=== PATIENT | female | born 1935 | race Caucasian/White ===

== ENCOUNTER 2016-09-06 07:55 | Inpatient (IN) | payer OTHER ==
[~2016-09-06] VITALS: Ht 162.6 cm; Wt 45.4 kg
--- NOTE | ~2016-09-06 | HC ---
[facility] [place] [address] CONSULTATION Name: FLETCHER PATRICIO Room #: 464-P [facility] Christine Hawkins#: [id number] Admission: 09/06/16 Attend Phys: Ani Gonsales MD Discharge: Date of : 34 Report #: [id number] THIS REPORT FOR: //name// CC: Ani PeñaKatie DATE OF SERVICE: 09/09/2016 We were asked by Dr. Mills and Dr. Sandhu to see the patient. HISTORY OF PRESENT ILLNESS: The patient is an 81-year-old with lower extremity arterial occlusive disease. The patient presented with cellulitis of the left lower extremity. Arteriography was done yesterday that showed occlusion of the left superficial femoral artery and a stent was placed. Unfortunately, during the night, the patient developed some pain. It was perceived that there was decreased circulation in the right lower extremity (____catheterized). We note today, the patient went for an MRI of the left lower extremity, there is an ulcerated and cellulitic area on the dorsum of the left foot and according to Radiology, there is no underlying osteomyelitis shown on the MRI. PAST MEDICAL HISTORY: Significant for chronic obstructive pulmonary disease related to a long smoking history, diabetes mellitus, coronary artery disease, chronic pancreatitis. HOME MEDICATIONS: Includes albuterol, Xarelto, pentoxifylline, Colestid, Zocor, aspirin, [place], potassium, Lasix, Xalatan, Creon, omeprazole, glimepiride, multivitamins and vitamin C, Plavix was started yesterday. SOCIAL HISTORY: Smoking history, 1 pack a day. FAMILY HISTORY: No other family history of vascular disease. ALLERGIES: PENICILLIN and MEPERIDINE. REVIEW OF SYSTEMS: CONSTITUTIONAL: No fever, chills, malaise, weight change. EYES: No eye pain, no visual change. No new hearing problems. The patient wears glasses. HEENT: As mentioned, no hearing changes, no ear discharge, neck pain, sore throat. RESPIRATORY: No cough. No new shortness of breath, no hemoptysis. CARDIAC: No chest pain, no palpitations. GASTROINTESTINAL: No nausea, vomiting or diarrhea. Does have chronic abdominal pain. GENITOURINARY: No burning, frequency, urgency. [facility] [address] [place] [address] CONSULTATION Name: FLETCHER PATRICIO Room #: 464-[facility] Christine Hawkins#: [id number] Admission: 09/06/16 Attend Phys: Ani Gonsales MD Discharge: Date of : 34 Report #: [id number] MUSCULOSKELETAL: Sore present on the left leg resulting in shooting, sharp pain to the foot, cannot bear weight on left foot, which led to fall, which led to this admission, chronic back pain. SKIN: No previous rash or infection. We note the bruising and cellulitis on the left lower extremity upon admission. NEUROLOGIC: Has had generalized weakness leading to falling, but patient hit her head when she fell, no amnesia, confusion, loss of consciousness. PHYSICAL EXAMINATION: GENERAL: The patient is a thin, frail woman. VITAL SIGNS: Blood pressure 95/56, heart rate 113, respiratory rate 20, temperature 36.6, O2 sat 98 on 8 liters. HEENT: No scleral icterus, no arcus. NECK: No lymphadenopathy, no bruit. CHEST: Decreased breath sounds. HEART: Rhythm regular. ABDOMEN: Mild generalized discomfort to palpation, nondistended, bowel sounds present. EXTREMITIES: Left foot edematous and cellulitic with a particular area of erythema on the dorsum of the foot that is a bit swollen and more ____ and more cellulitic appearing. Right lower extremity warm and pink. Pulses, I do not feel dorsalis pedis or posterior tibial pulses, I do not feel popliteal pulses. Right groin has been catheterized. NEUROLOGIC: Seems to have full motion and sensation, moves toes and has full distal sensation. MUSCULOSKELETAL: No other bony dyssymmetry or deformity. PSYCHIATRIC: Seems a bit unhappy, but seem oriented and overall appropriate. ASSESSMENT: The patient has lower extremity arterial occlusive disease related to long smoking history, possible that the patient may have embolized somewhat from the right groin catheterization. We note the plans are established to perform arteriogram tomorrow to see if there is some intervention that can be done. The right leg has not currently threatened, however, and I spoke with Dr. Sandhu and we both agree that an overly aggressive approach would not be warranted in any event. Thank you for the consult. <ELECTRONICALLY SIGNED> By: Otto Frey MD 09/12/16 1128 1515 [id number] Otto Frey MD /nt
--- NOTE | ~2016-09-06 | 2DMMODE ---
[facility] [place] [address] 2 D/M-MODE ECHOCARDIOGRAM Name: FLETCHER PATRICIO Room #: 464-P ADM IN M.R.#: [id number] Admission: 09/06/16 Attend Phys: Ani Gonsales MD Discharge: Date of : 34 Date of Service: 09/12/16 1035 Report #: [id number] THIS REPORT FOR: //name// Transthoracic Echocardiography Ordering physician: Kristi Mills [facility] Ibrahim physician: [employer] Fire Warden: Myesha Luna Indications/History: Short of breath. Hx: CABG, DM, arrhythmia, COPD BP: 129 / HR: 102bpm Height: 64in Weight: 100.8lb 76 Study data: Limited 2D, limited spectral Doppler, and color Doppler. 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 Image quality was adequate. Limited echo. Complete echo done 07/30/2016. 2D measurements Normal Normal LVID ED 36-57 IVS ED 6-11 LVID ES 23-40 LVPW ED 6-11 LA volume index 16-28 AoRoot diam ED 21-37 LVOT diameter 18-23 Findings: Left ventricle: The cavity size was normal. Systolic function was normal. The estimated ejection fraction was in the range of 60% to 65%. Wall motion was normal. Right ventricle: The cavity size was normal. Systolic function was normal. Right atrium: The atrium was normal in size. Left atrium: The atrium was normal in size. Aortic valve: Mildly thickened, mildly calcified leaflets. Doppler: There was no stenosis. No regurgitation. Mitral valve: Mildly to moderately calcified annulus. Mildly thickened leaflets . Doppler: There was no [address] [address] 2 D/M-MODE ECHOCARDIOGRAM Name: SINTIAFLETCHER CASTANEDA Room #: 464-P [facility] IN M.R.#: [id number] Admission: 09/06/16 Attend Phys: Ani Gonsales MD Discharge: Date of : 34 Date of Service: 09/12/16 1035 Report #: [id number] evidence for stenosis. No regurgitation. Tricuspid valve: Structurally normal valve. Doppler: There was no evidence for stenosis. Mild-moderate regurgitation. Regurgitant peak velocity: 315.8cm/s. Peak RV-RA gradient: 40mm Hg (S). Pericardium: There was no pericardial effusion. Pleura: There was a right pleural effusion. There was a left pleural effusion. Pulmonary artery: Systolic pressure was estimated to be 45mm Hg. Systemic veins: Inferior vena cava: The vessel was normal in size; the respirophasic diameter changes were in the normal range (= 50%). Conclusions 1. Left ventricle: Systolic function was normal. The estimated ejection fraction was in the range of 60% to 65%. Wall motion was normal. 2. Aortic valve: Mildly thickened, mildly calcified leaflets. There was no stenosis. No regurgitation. 3. Mitral valve: Mildly to moderately calcified annulus. Mildly thickened leaflets . There was no evidence for stenosis. No regurgitation. 4. Pericardium, extracardiac: There was no pericardial effusion. 5. Pulmonary arteries: Systolic pressure was estimated to be 45mm Hg. <ELECTRONICALLY SIGNED> By: Fernando Arredondo MD, [facility] 09/12/16 1128 1035 1128 Fernando Arredondo MD, FACC /kong
--- NOTE | ~2016-09-06 | EKG ---
[address] [address] ELECTROCARDIOGRAM REPORT Name: FLETCHER PATRICIO Room #: 464-P ADM IN M.R.#: [id number] Admission: 09/06/16 Attend Phys: Ani Gonsales MD Discharge: Date of : 34 Report #: [id number] THIS REPORT FOR: //name// [facility] Test Date: 2016-09-14 Test Time: 12:11:50 Pat Name: FLETCHER PATRICIO Department: Room: 464 Gender: F Prisoner Classification Interviewer: LETI : 1935 Requested By: Ani Gonsales Order Number: [id number] MD: Renny Lambert Measurements Intervals [place] Rate: 109 P: 82 WY: 137 QRS: 76 QRSD: 77 T: 72 QT: 346 QTc: 467 Interpretive Statements Sinus tachycardia Left atrial enlargement Borderline repolarization abnormality Compared to ECG 05/29/2016 06:47:44 Atrial abnormality now present Sinus rhythm no longer present Electronically Signed On 09-17-2016 15:51:04 LABEL TACKER by Renny Lambert [email or web address] <ELECTRONICALLY SIGNED> By: Renny Lambert MD 09/17/16 1551 121 10 Renny Lambert MD /EPI
--- NOTE | ~2016-09-06 | D ---
[facility] [place] [address] DISCHARGE SUMMARY Name: FLETCHER PATRICIO Room #: 464-P [facility] IN M.R.#: [id number] Admission: 09/06/16 Attend Phys: Ani Gonsales MD Discharge: 09/20/16 Date of : 34 Report #: [id number] THIS REPORT FOR: //name// CC: [facility] DATE OF SERVICE: 09/20/2016 TYPE OF DICTATION: Discharge summary after [id number] encounter. DISCHARGE DIAGNOSES: 1. Bilateral lower extremity peripheral vascular disease status post stent. 2. Back pain secondary to compression fracture of L1. 3. Pneumonia. 4. Debility. 5. Lower extremity cellulitis. DISCHARGE MEDICATIONS: See discharge summary done by Dr. Gonsales on September 18. HOSPITAL COURSE: The patient was admitted to the hospital secondary to peripheral vascular disease. She has stents in ____ femoral artery on the right side and then on the left side. She has lower extremity wounds which were treated by wound team. At the same time, she was having lower extremity cellulitis. The patient was on IV antibiotic and improved on that. Also, during her stay in the hospital, she was complaining of low back pain and she was discovered to have compression fracture in the lumbar region, but she did not like to do anything regarding that fracture. The patient had some complications during her stay in the hospital, but she started to get her state of health back and she was stable on discharge. DISPOSITION: The patient was discharged to senior living facility. DISCHARGE INSTRUCTIONS: The patient is going to be followed by vascular and her primary care doctor. <ELECTRONICALLY SIGNED> By: Kristi Mills MD 10/03/16 0930 1334 1415 Kristi Mills MD /nt
--- NOTE | ~2016-09-06 | HC ---
[facility] [place] [address] CONSULTATION Name: FLETCHER PATRICIO Room #: 447-P ADM IN M.R.#: [id number] Admission: 09/06/16 Attend Phys: Ani Gonsales MD Discharge: Date of : 34 Report #: [id number] THIS REPORT FOR: //name// CC: Ani Santiago REASON FOR CONSULTATION: I was asked to evaluate the patient concerning ischemic left foot with cellulitis. HISTORY OF PRESENT ILLNESS: The patient is an 81-year-old with a history of atrial fibrillation who has been anticoagulated for this. She has coronary artery disease, status post coronary artery bypass grafting and has been on aspirin and Xarelto. She presents now with persistent pain in her left leg. She has also had some pain in her right calf. Found to have peripheral vascular disease and angiogram yesterday showed bilateral superficial femoral artery occlusions. The left side was stented with good result. The right side had reasonable runoff and this was left alone. Post-procedure, she has had increased pain in the right calf and foot. The right foot has been colder than the left. She also developed increased swelling and some blistering along the dorsum of her foot. No fever or chills. She has been on oxygen initially 5 liters, now at 8 liters. She has had cough with purulent sputum production. No abdominal pain. No nausea, vomiting or diarrhea. PAST MEDICAL HISTORY: Atrial dysrhythmia on chronic anticoagulation, coronary artery disease status post coronary bypass grafting, chronic pancreatitis, COPD, diabetes, continues to smoke cigarettes. PAST SURGICAL HISTORY: She has had cholecystectomy, pancreatic surgery, herniorrhaphy, hemorrhoidectomy. ALLERGIES: PENICILLIN, DEMEROL. MEDICATIONS: As noted on her MAR including vancomycin and clindamycin. FAMILY HISTORY: Coronary artery disease. SOCIAL HISTORY: Lives independently, smoke of cigarettes, no report of increased alcohol intake. REVIEW OF SYSTEMS: Negative, has been described above. PHYSICAL EXAMINATION: GENERAL: She is alert, cooperative, on 8 liters of oxygen per nasal cannula. She was thin. HEENT: Unremarkable. NECK: Supple. LUNGS: Scattered, coarse breath sounds. No consolidation. [facility] [address] [place] [address] CONSULTATION Name: FLETCHER PATRICIO Room #: 447-P ADM IN M.R.#: [id number] Admission: 09/06/16 Attend Phys: Ani Gonsales MD Discharge: Date of : 34 Report #: [id number] HEART: Regular without murmur. ABDOMEN: Soft, nontender, no hepatosplenomegaly or mass appreciated. EXTREMITIES: Pulses in both femoral regions are palpable. She had 1+ swelling in the right foot, 2+ swelling in the left with tenderness below the knee bilaterally. I could not palpate pulses in her feet. She had slow capillary refill bilaterally. There was a bullous lesion over the dorsum of her left foot. She had ulceration of the posterior aspect of her lower calf on the left. Right lower leg erythematous and markedly tender pretibial and posterior calf region. Sensation in the foot was intact and she was able to move her feet and toes. LABORATORY STUDIES: Sodium 133, potassium 4.3, BUN 30, creatinine 1.4, bicarbonate 25. Hemoglobin 12, platelet count 174,000, white count 5.9 with 46% segs, 43% bands. IMPRESSION: An 81-year-old with peripheral vascular disease, first postoperative day from stenting of her left superficial femoral artery. Has ischemic left foot as well as ongoing ischemia or possibly emboli to the right. In addition, she has acute tubular necrosis, marked left shift on her white count, bronchitis versus pneumonia with hypoxia complicating chronic obstructive pulmonary disease. PLAN: Recommend continuing IV antibiotics for both lungs and lower extremities. We will discuss with interventional radiology regarding her right leg. We will obtain cultures of blood and sputum as well as chest x-ray. Follow up laboratory studies in the a.m. <ELECTRONICALLY SIGNED> By: Christian Gracia MD 09/10/16 0848 1138 1209 Christian Gracia MD /nt
--- NOTE | ~2016-09-06 | H ---
[facility] [place] [address] HISTORY AND PHYSICAL Name: FLETCHER PATRICIO Room #: 464-P [facility] IN M.R.#: [id number] Admission: 09/06/16 Attend Phys: Ani Gonsales MD Discharge: 09/20/16 Date of : 34 Report #: [id number] THIS REPORT FOR: //name// CC: Ani Santiago MD DATE OF SERVICE: 09/06/2016 CHIEF COMPLAINT: Left foot pain and back pain. HISTORY OF PRESENT ILLNESS: The patient is an 81-year-old female with a history of coronary artery disease, diabetes; atrial arrhythmia, on chronic anticoagulation, COPD, and chronic pancreatitis, presented to the ER secondary to left foot pain and back pain. She indicates that she had chronic wounds on her both legs, that is followed by [facility] in the wound care. More recently, her left foot has become redder more painful. She could not bare any weight on her left foot this morning and subsequently fell because of it. The pain and swelling in her left foot has been just in the past few hours. She has taken Franklin for her pain without any relief. Additionally, she is complaining of back pain as well. She denied any chest pain, shortness of breath, lightheadedness, nausea or vomiting prior to the fall. Workup in the ER revealed that she has a L1 compression fracture, that is acute. She has received morphine in the ER without any relief. PAST MEDICAL HISTORY: As stated, atrial arrhythmia on chronic anticoagulation, coronary artery disease, chronic pancreatitis, chronic abdominal pain on Franklin, COPD, and diabetes. PAST SURGICAL HISTORY: She has had CABG times 4, pancreatic surgery, cholecystectomy, hernia repair, and hemorrhoidectomy. ALLERGIES: DEMEROL and PENICILLIN, reaction unknown. SOCIAL HISTORY: She smokes a pack of cigarettes daily for the past six years. Lives independently. FAMILY HISTORY: Positive for heart disease. REVIEW OF SYSTEMS: A 14-point review of system was conducted. All negative except for above. CURRENT MEDICATIONS: Include albuterol, Xarelto 20 mg daily, pentoxifylline 400 mg b.i.d., Colestid 1 gram daily, simvastatin 5 mg daily, nitroglycerin p.r.n., aspirin 81 mg daily, Franklin p.r.n., calcium, K-Dur 10 mEq b.i.d., Lasix 40 mg daily, Xalatan drops, Creon, omeprazole, glimepiride 1 mg daily, ascorbic acid, [address] [address] HISTORY AND PHYSICAL Name: FLETCHER PATRICIO Room #: 464-P [facility] IN M.R.#: [id number] Admission: 09/06/16 Attend Phys: Ani Gonsales MD Discharge: 09/20/16 Date of : 34 Report #: [id number] and multivitamin daily. PHYSICAL EXAMINATION: VITAL SIGNS: Temperature 98, pulse of 97, blood pressure of 100/55, when she first came in, O2 sat 91% on room air. GENERAL: She is awake, alert, answering questions appropriately, in no acute respiratory distress. HEENT: Normocephalic and atraumatic. Pupils are equal. NECK: Supple. CARDIOVASCULAR: Regular rate and rhythm. No murmurs. LUNGS: Clear to auscultation bilaterally. No crackles or wheeze. ABDOMEN: Soft. No distention or tenderness. EXTREMITIES: Left lower extremity is red, mildly swollen, extremely tender and warm. Right lower extremity showed chronic stasis changes, but no redness or pain. NEUROLOGIC: Nonfocal. LABS AND TESTING: Sodium 139, potassium 3.8, BUN and creatinine 22 and 1.1. White count is 7.5, H and H 12 and 38, platelets 249. INR is 1.3, lactic acid is 1.8. CT of the head without contrast is negative. CT of the spine, no acute abnormalities. Lumbar x-ray showed acute moderate compression fracture at L1. X-ray of her left foot was negative for fracture, just shows diffuse swelling. Pelvic x-ray is negative. Chest x-ray shows moderate chronic pulmonary changes, minor bibasilar atelectasis. ASSESSMENT AND PLAN: 1. Left lower extremity cellulitis. We will start her on some antibiotics, get wound to see her. 2. Acute L1 compression fracture with intractable pain. We will try to put her on some oral medications and Lidoderm. Get PT to see her. If it is indicated and continues to be severe, we will need to get IR to see her for vertebroplasty, but we will try conservative measures for this, as we will need to hold her anticoagulation, if we proceed down that route. 3. Atrial arrhythmia on chronic anticoagulation. Again, continue the same. Hold her anticoagulant if she needs to have vertebroplasty. May need to consider Cardiology consult prior to doing so, but she does not have a history of cerebrovascular accident, so I do not think that would be high risk to hold that prior to the procedure. 4. Coronary artery disease, prior coronary artery bypass grafting. Continue home medications. 5. Chronic obstructive pulmonary disease. Continue p.r.n. breathing treatments as she does at home. [facility] [address] [place] [address] HISTORY AND PHYSICAL Name: FLETCHER PATRICIO Room #: 464-P DIS IN M.R.#: [id number] Admission: 09/06/16 Attend Phys: Ani Gonsales MD Discharge: 09/20/16 Date of : 34 Report #: [id number] 6. Diabetes. Continue home meds and sliding scale insulin. 7. Deep venous thrombosis prophylaxis. Already on Xarelto. <ELECTRONICALLY SIGNED> By: Ani Gonsales MD 10/27/162008 1201 1322 Ani Gonsales MD /nt
[~2016-09-06 07:55] MED LIST: ACCUNEB SO1.25 MG/1 INH; AMARYL2 MG PO; ASPIR 8181 MG PO; CALCIUM 600 +1 EAC1 PO; CARDIZEM CD120 MG PO; CILOSTAZOL 100100 M1 PO; LISINOPRIL2.5 MG PO; NITROGLYCERIN0.4 MG SUBLING; NORCO 5-325 TA1 EACH PO; OMEPRAZOLE20 M2 PO; PENTOXIFYLLINE400 MG PO; SANTYL OINTMENT30 G1 TP; SPIRIVA INH; UNICOMPLEX M TA1 TA1 PO; VENTOLIN HFA 1818 GM INH; VITAMINC500 PO; ZOCOR20 MG PO
[2016-09-06 07:56] VITALS: BP 87/65
[2016-09-06 08:37] LABS: HEMOGLOBIN 12.8 gm/dL (12.0-15.0); PLATELET COUNT 249 thou/uL (150-400); WBC 7.5 thou/uL (4.0-11.0)
[2016-09-06 08:38] LABS: ABSOLUTE NEUTROPHILS 6.4 thou/uL (1.4-8.2); BASOPHILS 0.1 % (0.0-2.0); HEMATOCRIT 38.3 % (37.0-47.0); LYMPHOCYTES 9.4 % (24.0-44.0); MCH 32.8 pg (26.0-34.0); MCHC 33.6 % (28.0-37.0); MCV 97.7 fL (80.0-100.0); MONOCYTES 5.8 % (1.0-8.0); POLYS 84.7 % (36.0-66.0); RBC 3.92 mil/uL (4.20-5.00); RDW 16.6 % (10.5-14.5)
[2016-09-06 08:39] LABS: CALCIUM 8.5 mg/dL (8.5-10.1); CREATININE 1.1 mg/dL (0.6-1.3); POTASSIUM 3.8 mmol/L (3.5-5.1)
[2016-09-06 08:41] LABS: MANUAL DIFF NO
[2016-09-06 08:59] LABS: APTT 32.4 Seconds (24.5-32.8); INR 1.3; PROTIME 13.3 Seconds (9.3-11.4)
[2016-09-06] MEDS ORDERED: ASPIRIN81 M2 PO (10:41)
[2016-09-06] MEDS ORDERED: PENTOXIFYLLINE400 MG PO (10:41)
[2016-09-06] MEDS ORDERED: ZOCOR20 MG PO (10:42)
[2016-09-06] MEDS ORDERED: OMEPRAZOLE20 M1 PO (10:42)
[2016-09-06] MEDS ORDERED: XARELTO20 MG PO (10:42)
[2016-09-06] MEDS ORDERED: AMARYL2 MG PO (10:43)
[2016-09-06] MEDS ORDERED: VITAMINC500 PO (10:43)
[2016-09-06] MEDS ORDERED: CALCIUM 600 +1 EAC1 PO (10:43)
[2016-09-06] MEDS ORDERED: CENTRUM SILVER1 EAC4 PO (10:44)
[2016-09-06] MEDS ORDERED: COLESTID1 GM PO (10:45)
[2016-09-06] MEDS ORDERED: LASIX 40 MG TAB40 M2 PO (10:46)
[2016-09-06] MEDS ORDERED: CREON DR 24,001 EACH PO (10:46)
[2016-09-06] MEDS ORDERED: XALATAN2.5 ML OPHTHALMIC (10:46)
[2016-09-06] MEDS ORDERED: K-DUR10 MEQ PO (10:47)
[2016-09-06] MEDS ORDERED: NITROGLYCERIN0.4 MG SUBLING (10:48)
[2016-09-06] MEDS ORDERED: VENTOLIN HFA 1818 GM INH (10:48)
[2016-09-06] MEDS ORDERED: HYDROCODONE-AP1 EAC6 PO (10:49)
[2016-09-06 12:42] LABS: TROPONIN-I < 0.04 ng/mL (<0.04-0.07)
[2016-09-06 12:47] VITALS: BP 96/53
[2016-09-06 13:10] VITALS: BP 109/66
[2016-09-06 15:30] VITALS: BP 104/61
[2016-09-06 19:04] LABS: TROPONIN-I 0.1 ng/mL (<0.04-0.07)
[2016-09-06 20:06] VITALS: BP 103/58
[2016-09-07 00:02] VITALS: BP 101/46
[2016-09-07 03:54] VITALS: BP 100/48
[2016-09-07 04:21] LABS: HEMATOCRIT 39.1 % (37.0-47.0); HEMOGLOBIN 12.8 gm/dL (12.0-15.0); MCH 32.5 pg (26.0-34.0); MCHC 32.8 % (28.0-37.0); MCV 99.2 fL (80.0-100.0); RBC 3.94 mil/uL (4.20-5.00); RDW 16.9 % (10.5-14.5); WBC 7.7 thou/uL (4.0-11.0)
[2016-09-07 08:39] VITALS: BP 82/49
[2016-09-07 17:02] VITALS: BP 96/50
[2016-09-07 20:09] VITALS: BP 103/57
[2016-09-07 22:32] VITALS: BP 124/68
[2016-09-08] VITALS (8 sets, daily range): BP systolic 104–129; BP diastolic 59–69
[2016-09-08 05:31] LABS: ABSOLUTE NEUTROPHILS 5.9 thou/uL (1.4-8.2); BASOPHILS 0.1 % (0.0-2.0); EOSINOPHILS 0.1 % (0.0-3.0); HEMATOCRIT 40.4 % (37.0-47.0); HEMOGLOBIN 13.2 gm/dL (12.0-15.0); LYMPHOCYTES 10.8 % (24.0-44.0); MCHC 32.8 % (28.0-37.0); MCV 97.6 fL (80.0-100.0); MONOCYTES 3.1 % (1.0-8.0); PLATELET COUNT 223 thou/uL (150-400); POLYS 85.9 % (36.0-66.0); RBC 4.14 mil/uL (4.20-5.00); RDW 16.6 % (10.5-14.5); WBC 6.9 thou/uL (4.0-11.0)
[2016-09-08 05:34] LABS: MANUAL DIFF NO
[2016-09-08 05:38] LABS: CALCIUM 9.1 mg/dL (8.5-10.1); CREATININE 1.5 mg/dL (0.6-1.3); INR 1.6; POTASSIUM 4.3 mmol/L (3.5-5.1); PROTIME 16.2 Seconds (9.3-11.4)
[2016-09-08 21:22] LABS: HEMATOCRIT 38.4 % (37.0-47.0); HEMOGLOBIN 12.6 gm/dL (12.0-15.0); MCHC 32.8 % (28.0-37.0); MCV 97.7 fL (80.0-100.0); RBC 3.93 mil/uL (4.20-5.00); RDW 16.9 % (10.5-14.5); WBC 6.1 thou/uL (4.0-11.0)
[2016-09-08 21:37] LABS: APTT 40.6 Seconds (24.5-32.8); INR 1.3; PROTIME 13.2 Seconds (9.3-11.4)
[2016-09-09 03:35] LABS: HEMATOCRIT 36.4 % (37.0-47.0); HEMOGLOBIN 12.2 gm/dL (12.0-15.0); MCH 32.8 pg (26.0-34.0); MCHC 33.5 % (28.0-37.0); PLATELET COUNT 174 thou/uL (150-400); RBC 3.71 mil/uL (4.20-5.00); RDW 16.6 % (10.5-14.5); WBC 5.9 thou/uL (4.0-11.0)
[2016-09-09 03:37] LABS: MANUAL DIFF YES
[2016-09-09 03:40] LABS: CALCIUM 8.4 mg/dL (8.5-10.1); CREATININE 1.4 mg/dL (0.6-1.3); POTASSIUM 4.3 mmol/L (3.5-5.1)
[2016-09-09 04:17] VITALS: BP 118/51
[2016-09-09 05:02] LABS: ABSOLUTE NEUTROPHILS 5.3 thou/uL (1.4-8.2); BURR CELLS 2+; OVALOCYTES FEW; POLYCHROMASIA OCCASIONAL; TOTAL CELL COUNT 100
[2016-09-09 05:03] LABS: POIKILOCYTOSIS 2+
[2016-09-09 05:05] LABS: TOXIC GRANULATION 1+
[2016-09-09 09:09] VITALS: BP 115/63
[2016-09-09 12:01] VITALS: BP 95/56
[2016-09-09 12:16] LABS: HEMATOCRIT 34.6 % (37.0-47.0); HEMOGLOBIN 11.6 gm/dL (12.0-15.0); MCH 32.5 pg (26.0-34.0); MCHC 33.4 % (28.0-37.0); MCV 97.3 fL (80.0-100.0); PLATELET COUNT 169 thou/uL (150-400); RBC 3.56 mil/uL (4.20-5.00); RDW 16.4 % (10.5-14.5); WBC 7.4 thou/uL (4.0-11.0)
[2016-09-09 12:24] LABS: MANUAL DIFF YES
[2016-09-09 12:55] LABS: ALBUMIN 1.5 g/dL (3.4-5.0); CALCIUM 8.1 mg/dL (8.5-10.1); CREATININE 1.4 mg/dL (0.6-1.3); POTASSIUM 4.2 mmol/L (3.5-5.1); TOTAL BILIRUBIN 0.5 mg/dL (<0.1-1.0); TOTAL PROTEIN 3.9 g/dL (6.4-8.2)
[2016-09-09 13:25] LABS: ABSOLUTE NEUTROPHILS 6.7 thou/uL (1.4-8.2); ANISOCYTOSIS 1+; ATYPICAL LYMPHS 1 %; TOTAL CELL COUNT 100
[2016-09-09 13:26] LABS: OVALOCYTES FEW
[2016-09-09 16:30] VITALS: BP 99/54
[2016-09-09 20:00] VITALS: BP 109/60
[2016-09-10] VITALS (7 sets, daily range): BP systolic 94–113; BP diastolic 57–62
[2016-09-10 06:13] LABS: HEMATOCRIT 34.6 % (37.0-47.0); HEMOGLOBIN 11.8 gm/dL (12.0-15.0); MCH 32.6 pg (26.0-34.0); MCHC 34.1 % (28.0-37.0); MCV 95.5 fL (80.0-100.0); PLATELET COUNT 149 thou/uL (150-400); RBC 3.63 mil/uL (4.20-5.00); RDW 16.8 % (10.5-14.5); WBC 8.7 thou/uL (4.0-11.0)
[2016-09-10 06:22] LABS: MANUAL DIFF YES
[2016-09-10 06:30] LABS: CALCIUM 8.5 mg/dL (8.5-10.1); CREATININE 1.2 mg/dL (0.6-1.3); POTASSIUM 3.8 mmol/L (3.5-5.1)
[2016-09-10 06:59] LABS: ABSOLUTE NEUTROPHILS 7.8 thou/uL (1.4-8.2); ATYPICAL LYMPHS 2 %; TOTAL CELL COUNT 100
[2016-09-10 07:02] LABS: BURR CELLS 1+; OVALOCYTES OCCASIONAL
[2016-09-10 07:03] LABS: ANISOCYTOSIS 1+; POLYCHROMASIA SLIGHT
[2016-09-10 12:37] LABS: HEMOGLOBIN 10.8 gm/dL (12.0-15.0); MCH 32.6 pg (26.0-34.0); MCHC 33.8 % (28.0-37.0); MCV 96.2 fL (80.0-100.0); RBC 3.33 mil/uL (4.20-5.00); RDW 16.6 % (10.5-14.5); WBC 9.9 thou/uL (4.0-11.0)
[2016-09-10 12:43] LABS: CALCIUM 8.4 mg/dL (8.5-10.1); CREATININE 1.3 mg/dL (0.6-1.3); POTASSIUM 3.9 mmol/L (3.5-5.1)
[2016-09-10 13:08] LABS: INR 1.4; PROTIME 14.5 Seconds (9.3-11.4)
[2016-09-11 04:35] VITALS: BP 113/75
[2016-09-11 06:08] LABS: HEMATOCRIT 29.3 % (37.0-47.0); HEMOGLOBIN 9.9 gm/dL (12.0-15.0); MCH 32.3 pg (26.0-34.0); MCHC 33.9 % (28.0-37.0); MCV 95.4 fL (80.0-100.0); PLATELET COUNT 126 thou/uL (150-400); RBC 3.07 mil/uL (4.20-5.00); RDW 16.1 % (10.5-14.5); WBC 11.4 thou/uL (4.0-11.0)
[2016-09-11 06:19] LABS: CALCIUM 7.9 mg/dL (8.5-10.1); CREATININE 1.2 mg/dL (0.6-1.3); POTASSIUM 4.3 mmol/L (3.5-5.1)
[2016-09-11 06:33] LABS: MANUAL DIFF YES
[2016-09-11 07:21] LABS: ABSOLUTE NEUTROPHILS 10.6 thou/uL (1.4-8.2); ANISOCYTOSIS 1+; OVALOCYTES 1+; TOTAL CELL COUNT 100
[2016-09-11 07:22] LABS: POLYCHROMASIA SLIGHT
[2016-09-11 08:00] VITALS: BP 123/67
[2016-09-11 12:00] VITALS: BP 118/64
[2016-09-11 17:00] VITALS: BP 121/71
[2016-09-11 20:10] VITALS: BP 115/73
[2016-09-11 23:29] VITALS: BP 120/72
[2016-09-12 03:17] VITALS: BP 124/76
[2016-09-12 06:21] LABS: HEMATOCRIT 29.8 % (37.0-47.0); MCH 32.3 pg (26.0-34.0); MCHC 33.7 % (28.0-37.0); MCV 95.8 fL (80.0-100.0); PLATELET COUNT 115 thou/uL (150-400); RBC 3.11 mil/uL (4.20-5.00); RDW 16.3 % (10.5-14.5); WBC 13.5 thou/uL (4.0-11.0)
[2016-09-12 06:22] LABS: MANUAL DIFF YES
[2016-09-12 06:30] LABS: CALCIUM 8.1 mg/dL (8.5-10.1); CREATININE 1.2 mg/dL (0.6-1.3); POTASSIUM 3.9 mmol/L (3.5-5.1)
[2016-09-12 08:00] VITALS: BP 129/76
[2016-09-12 08:03] LABS: ABSOLUTE NEUTROPHILS 12.6 thou/uL (1.4-8.2); TOTAL CELL COUNT 100
[2016-09-12 10:20] LABS: TROPONIN-I 0.06 ng/mL (<0.04-0.07)
[2016-09-12 16:26] VITALS: BP 114/65
[2016-09-12 20:00] VITALS: BP 127/78
[2016-09-13 04:19] LABS: HEMATOCRIT 27.9 % (37.0-47.0); HEMOGLOBIN 9.3 gm/dL (12.0-15.0); MCH 32.1 pg (26.0-34.0); MCHC 33.2 % (28.0-37.0); MCV 96.6 fL (80.0-100.0); PLATELET COUNT 103 thou/uL (150-400); RBC 2.88 mil/uL (4.20-5.00); RDW 16.4 % (10.5-14.5); WBC 11.3 thou/uL (4.0-11.0)
[2016-09-13 04:20] LABS: MANUAL DIFF YES
[2016-09-13 04:24] VITALS: BP 95/62
[2016-09-13 04:38] LABS: ALBUMIN 1.3 g/dL (3.4-5.0); CALCIUM 8.1 mg/dL (8.5-10.1); CREATININE 1.1 mg/dL (0.6-1.3); MAGNESIUM 1.7 mg/dL (1.8-2.4); POTASSIUM 3.7 mmol/L (3.5-5.1); TOTAL BILIRUBIN 0.5 mg/dL (<0.1-1.0); TOTAL PROTEIN 4.1 g/dL (6.4-8.2); TROPONIN-I 0.08 ng/mL (<0.04-0.07)
[2016-09-13 04:50] LABS: ABSOLUTE NEUTROPHILS 9.9 thou/uL (1.4-8.2); ANISOCYTOSIS 1+; TOTAL CELL COUNT 100
[2016-09-13 05:42] LABS: ABG SAMPLE TYPE ARTERIAL; BE(vivo) 4.2 mmol/L (-2 to +3); HCO3 28.4 mmol/L (22.0-26.0); LACTATE 1.07 mmol/L (0.5-2.0); O2(CT) 12.2 mL/dL (15.0-23.0); O2Hb 91.7 % (92.0-98.0); PCO2 40.7 mmHg (35.0-45.0); PO2 65.8 mmHg (80.0-100.0); pH 7.461 (7.360-7.450); tCO2 29.6 mmol/L (24.0-30.0)
[2016-09-13 05:44] LABS: STICK SITE R.BRACHIAL
[2016-09-13 08:50] VITALS: BP 113/73
[2016-09-13 12:00] VITALS: BP 122/72
[2016-09-13 15:55] VITALS: BP 129/76
[2016-09-13 19:44] VITALS: BP 119/72
[2016-09-14 06:22] LABS: HEMATOCRIT 25.2 % (37.0-47.0); HEMOGLOBIN 8.7 gm/dL (12.0-15.0); MCH 32.9 pg (26.0-34.0); MCHC 34.5 % (28.0-37.0); MCV 95.3 fL (80.0-100.0); PLATELET COUNT 115 thou/uL (150-400); RBC 2.65 mil/uL (4.20-5.00); RDW 16.3 % (10.5-14.5); WBC 10.7 thou/uL (4.0-11.0)
[2016-09-14 06:25] LABS: MANUAL DIFF YES
[2016-09-14 06:40] LABS: CALCIUM 8.1 mg/dL (8.5-10.1); CREATININE 0.9 mg/dL (0.6-1.3); MAGNESIUM 1.8 mg/dL (1.8-2.4); POTASSIUM 3.5 mmol/L (3.5-5.1); TROPONIN-I 0.06 ng/mL (<0.04-0.07)
[2016-09-14 06:46] LABS: ABSOLUTE NEUTROPHILS 9.7 thou/uL (1.4-8.2); ANISOCYTOSIS SLIGHT; MACROCYTES SLIGHT; TOTAL CELL COUNT 100
[2016-09-14 07:10] LABS: ABG SAMPLE TYPE ARTERIAL; BE(vivo) 5.9 mmol/L (-2 to +3); HCO3 30.2 mmol/L (22.0-26.0); LACTATE 0.89 mmol/L (0.5-2.0); O2(CT) 12.1 mL/dL (15.0-23.0); O2Hb 93.9 % (92.0-98.0); PCO2 43.3 mmHg (35.0-45.0); PO2 79.5 mmHg (80.0-100.0); STICK SITE L.BRACHIAL; pH 7.462 (7.360-7.450); sO2 96.3 % (92.0-98.0); tCO2 31.6 mmol/L (24.0-30.0)
[2016-09-14 08:00] VITALS: BP 117/70
[2016-09-14 13:05] LABS: TROPONIN-I 0.05 ng/mL (<0.04-0.07)
[2016-09-14 16:00] VITALS: BP 117/67
[2016-09-14 20:29] VITALS: BP 106/64
[2016-09-15 04:06] VITALS: BP 105/54
[2016-09-15 05:57] LABS: HEMATOCRIT 26.2 % (37.0-47.0); HEMOGLOBIN 8.8 gm/dL (12.0-15.0); MCH 32.2 pg (26.0-34.0); MCHC 33.4 % (28.0-37.0); MCV 96.4 fL (80.0-100.0); PLATELET COUNT 145 thou/uL (150-400); RBC 2.72 mil/uL (4.20-5.00); RDW 16.3 % (10.5-14.5); WBC 11.5 thou/uL (4.0-11.0)
[2016-09-15 06:04] LABS: MANUAL DIFF YES
[2016-09-15 06:07] LABS: CALCIUM 7.8 mg/dL (8.5-10.1); CREATININE 0.8 mg/dL (0.6-1.3); MAGNESIUM 1.8 mg/dL (1.8-2.4); POTASSIUM 3.5 mmol/L (3.5-5.1)
[2016-09-15 08:08] LABS: ABSOLUTE NEUTROPHILS 9.9 thou/uL (1.4-8.2); PLATELET ESTIMATE NORMAL; TOTAL CELL COUNT 100
[2016-09-15 09:00] VITALS: BP 115/65
[2016-09-15 12:05] VITALS: BP 100/45
[2016-09-15 14:00] LABS: HEMATOCRIT 27.2 % (37.0-47.0); HEMOGLOBIN 9.2 gm/dL (12.0-15.0); MCH 32.4 pg (26.0-34.0); MCV 95.4 fL (80.0-100.0); RBC 2.85 mil/uL (4.20-5.00); RDW 16.4 % (10.5-14.5)
[2016-09-15 14:08] LABS: CALCIUM 7.7 mg/dL (8.5-10.1); CREATININE 0.8 mg/dL (0.6-1.3); POTASSIUM 3.8 mmol/L (3.5-5.1)
[2016-09-15 14:14] LABS: PROTIME 10.5 Seconds (9.3-11.4)
[2016-09-15 16:38] VITALS: BP 111/61
[2016-09-15 20:19] VITALS: BP 97/51
[2016-09-16 03:44] VITALS: BP 100/53
[2016-09-16 05:40] LABS: HEMATOCRIT 24.5 % (37.0-47.0); HEMOGLOBIN 8.4 gm/dL (12.0-15.0); MCH 32.9 pg (26.0-34.0); MCHC 34.4 % (28.0-37.0); MCV 95.7 fL (80.0-100.0); RBC 2.56 mil/uL (4.20-5.00); RDW 16.4 % (10.5-14.5)
[2016-09-16 05:58] LABS: ANION GAP < 0 mmol/L (7-16); BUN 17 mg/dL (7-18); CALCIUM 7.8 mg/dL (8.5-10.1); CHLORIDE 100 mmol/L (98-107); CO2 36 mmol/L (21-32); CREATININE 0.8 mg/dL (0.6-1.3); GLUCOSE 61 mg/dL (70-99); POTASSIUM 3.4 mmol/L (3.5-5.1); SODIUM 133 mmol/L (136-145)
[2016-09-16 08:43] VITALS: BP 119/69
[2016-09-16 11:33] VITALS: BP 122/78
[2016-09-16 15:22] VITALS: BP 110/65
[2016-09-16 19:45] VITALS: BP 103/56
[2016-09-17 03:59] VITALS: BP 105/62
[2016-09-17 06:00] LABS: HEMATOCRIT 25.5 % (37.0-47.0); HEMOGLOBIN 8.3 gm/dL (12.0-15.0); MCHC 32.6 % (28.0-37.0); MCV 98.1 fL (80.0-100.0); RBC 2.6 mil/uL (4.20-5.00); RDW 16.4 % (10.5-14.5); WBC 12.1 thou/uL (4.0-11.0)
[2016-09-17 06:05] LABS: CREATININE 0.7 mg/dL (0.6-1.3); POTASSIUM 3.8 mmol/L (3.5-5.1)
[2016-09-17 07:02] VITALS: BP 115/71
[2016-09-17 11:51] VITALS: BP 125/72
[2016-09-17 15:47] VITALS: BP 102/44
[2016-09-17 19:27] VITALS: BP 94/53
[2016-09-18 05:03] VITALS: BP 111/75
[2016-09-18 05:34] LABS: HEMATOCRIT 24.7 % (37.0-47.0); HEMOGLOBIN 8.2 gm/dL (12.0-15.0); MCH 32.4 pg (26.0-34.0); MCHC 33.2 % (28.0-37.0); MCV 97.6 fL (80.0-100.0); RBC 2.53 mil/uL (4.20-5.00); RDW 16.3 % (10.5-14.5); WBC 11.4 thou/uL (4.0-11.0)
[2016-09-18 05:49] LABS: ANION GAP < 0 mmol/L (7-16); BUN 17 mg/dL (7-18); CALCIUM 7.8 mg/dL (8.5-10.1); CHLORIDE 98 mmol/L (98-107); CO2 39 mmol/L (21-32); CREATININE 0.9 mg/dL (0.6-1.3); GLUCOSE 83 mg/dL (70-99); POTASSIUM 3.9 mmol/L (3.5-5.1); SODIUM 135 mmol/L (136-145)
[2016-09-18 08:24] VITALS: BP 106/58
[2016-09-18 12:05] VITALS: BP 100/63
[2016-09-18] MEDS ORDERED: MUCINEX TA600 MG/TA2 PO (13:20)
[2016-09-18] MEDS ORDERED: ACCUNEB SO1.25 MG/1 INH (13:20)
[2016-09-18] MEDS ORDERED: OXYCONTIN10 M1 PO (13:20)
[2016-09-18] MEDS ORDERED: PLAVIX 75 MG TA75 M1 PO (13:20)
[2016-09-18] MEDS ORDERED: LEVAQUIN 500 M500 M2 PO (13:20)
[2016-09-18] MEDS ORDERED: OXYCODONE HCL10 MG PO (13:20)
[2016-09-18] MEDS ORDERED: DUONEB 2.5-0.5 M3 ML INH (13:20)
[2016-09-18 16:11] VITALS: BP 114/62
[2016-09-18 19:00] VITALS: BP 113/52
[2016-09-19 04:43] VITALS: BP 115/73
[2016-09-19 08:00] VITALS: BP 134/74
[2016-09-19 12:00] VITALS: BP 105/54
[2016-09-19 16:00] VITALS: BP 113/62
[2016-09-19 19:42] VITALS: BP 125/62
[2016-09-20 03:38] VITALS: BP 120/65
[2016-09-20 08:00] VITALS: BP 108/57
[2016-10-19] MEDS ORDERED: IRON325 PO (16:37)
[2016-10-19] MEDS ORDERED: REMERON15 MG PO (16:38)
[2016-10-19] MEDS ORDERED: MIRTAZAPINE15 M2 PO (16:38)
[2016-10-19] MEDS ORDERED: ONDANSETRON HCL4 M2 PO (16:40)
[2016-10-22] MEDS ORDERED: BACTRIM DS TAB1 EACH PO (14:24)
[2016-11-30] MEDS ORDERED: OXYCONTIN10 M1 PO (15:15)
[2016-12-01] MEDS ORDERED: CREON DR 24,001 EACH PO (13:12)
[2016-12-01] MEDS ORDERED: NICOTINE PATCH1 EAC1 TD (13:14)
[2016-12-01] MEDS ORDERED: OXYCONTIN10 M1 PO (13:15)
== END 2016-09-20 17:15 | DRG 853 ==
LOC: ER 07:55 → 5S 11:09 → EROBS 11:09 → 4S 11:09 → 4W 11:09 → 5S 14:24 → 4S 09-08 16:17 → 4W 09-10 11:04
PROVIDERS: Emergency Medicine; Family Medicine; Hospitalist; Radiology Diagnostic Radiology; Radiology Vascular & Interventional Radiology
PROC: B41G1ZZ Fluoroscopy of Left Lower Extremity Arteries using Low Osmolar Contrast (ICD-10-PCS; principal; 2016-09-08)
PROC: 047N3DZ Dilation of Left Popliteal Artery with Intraluminal Device, Percutaneous Approach (ICD-10-PCS; principal; 2016-09-08)
DX: A41.9 Sepsis, unspecified organism (principal); J96.01 Acute respiratory failure with hypoxia; N17.0 Acute kidney failure with tubular necrosis; J18.9 Pneumonia, unspecified organism; L03.116 Cellulitis of left lower limb; S32.019A Unspecified fracture of first lumbar vertebra, initial encounter for closed fracture; K86.1 Other chronic pancreatitis; L97.929 Non-pressure chronic ulcer of unspecified part of left lower leg with unspecified severity; Z88.0 Allergy status to penicillin; Z88.8 Allergy status to other drugs, medicaments and biological substances; W19.XXXA Unspecified fall, initial encounter; Y93.89 Activity, other specified; Y92.89 Other specified places as the place of occurrence of the external cause; Y99.8 Other external cause status; J44.9 Chronic obstructive pulmonary disease, unspecified; Z95.1 Presence of aortocoronary bypass graft; Z90.49 Acquired absence of other specified parts of digestive tract; Z98.890 Other specified postprocedural states; Z79.82 Long term (current) use of aspirin; Z79.899 Other long term (current) drug therapy; F17.210 Nicotine dependence, cigarettes, uncomplicated; I25.10 Atherosclerotic heart disease of native coronary artery without angina pectoris; Z79.01 Long term (current) use of anticoagulants; R10.9 Unspecified abdominal pain; G89.29 Other chronic pain; Z82.49 Family history of ischemic heart disease and other diseases of the circulatory system; I49.9 Cardiac arrhythmia, unspecified; I48.91 Unspecified atrial fibrillation; I77.1 Stricture of artery; E11.622 Type 2 diabetes mellitus with other skin ulcer; S80.922D Unspecified superficial injury of left lower leg, subsequent encounter; X58.XXXD Exposure to other specified factors, subsequent encounter; E11.51 Type 2 diabetes mellitus with diabetic peripheral angiopathy without gangrene
CPT/HCPCS: 10045; 10086; 10100; 62110; 62900; 70005

== ENCOUNTER → 2016-12-03 | Outpatient (CLI) | payer OTHER ==
[~2016-12-03] VITALS: Ht 162.6 cm; Wt 39.9 kg
[~2016-12-03] MED LIST changes: +ASPIRIN81 M2 PO; +BACTRIM DS TAB1 EACH PO; +CENTRUM SILVER1 EAC4 PO; +COLESTID1 GM PO; +CREON DR 24,001 EACH PO; +DUONEB 2.5-0.5 M3 ML INH; +HYDROCODONE-AP1 EAC6 PO; +IRON325 PO; +K-DUR10 MEQ PO; +LASIX 40 MG TAB40 M2 PO; +LEVAQUIN 500 M500 M2 PO; +MIRTAZAPINE15 M2 PO; +MUCINEX TA600 MG/TA2 PO; +NICOTINE PATCH1 EAC1 TD; +NYSTATIN 1100000 U/M SW&SWALLOW; +OMEPRAZOLE20 M1 PO; +ONDANSETRON HCL4 M2 PO; +OXYCODONE HCL10 MG PO; +OXYCONTIN10 M1 PO; +PLAVIX 75 MG TA75 M1 PO; +REMERON15 MG PO; +XALATAN2.5 ML OPHTHALMIC; +XARELTO20 MG PO
== END ==
LOC: OR 08:13 → MRI 08:29 → OR 08:35 → EDSTATUS 08:41 → OR 08:46 → MRI 09:39 → EDSTATUS 16:14
DX: M54.5 Low back pain (principal); M48.56XA Collapsed vertebra, not elsewhere classified, lumbar region, initial encounter for fracture
CPT/HCPCS: 50010; 62110; 62900; 70005

== ENCOUNTER 2016-12-09 02:51 | Inpatient (IN) | payer OTHER ==
[~2016-12-09] VITALS: Ht 162.6 cm; Wt 42.6 kg
--- NOTE | ~2016-12-09 | EEG ---
[facility] [place] [address] ELECTROENCEPHALOGRAM Name: FLETCHER PATRICIO Room #: 408-P DIS IN M.R.#: [id number] Admission: 12/10/16 Attend Phys: Bill Potter Discharge: 12/11/16 Date of : 34 Report #: [id number] THIS REPORT FOR: //name// CC: Homer PeñaKatie Stovall DATE OF SERVICE: 12/10/2016 This patient is having episodes of jerking. EEG is being done to evaluate that further. EEG was done by placing the electrodes by standard 10-20 system of electrode placement. Both referential and sequential montages were used for recording. Background activity in this patient's EEG is about 11 Hz and 30 microvolts. This patient becomes drowsy and then shows bilateral slowing and a few vertex sharp waves. Some question of sporadic sharper activity was noticed during this record. Photic stimulation is unremarkable. IMPRESSION: EEG is unremarkable except for some sporadic sharper activity noted, significance of that is not very clear. Thank you very much for this referral. <ELECTRONICALLY SIGNED> By: Corey Dey MD 12/11/161929 1731 58 Corey Dey MD /nt
--- NOTE | ~2016-12-09 | H ---
[facility] [place] [address] HISTORY AND PHYSICAL Name: FLETCHER PATRICIO Room #: 408-P [facility] Christine Hawkins#: [id number] Admission: 12/09/16 Attend Phys: Rosemarie Estes MD Discharge: Date of : 34 Report #: [id number] THIS REPORT FOR: //name// CC: Homer PeñaKatie Stovall DATE OF SERVICE: 12/09/2016 CHIEF COMPLAINT: Fall. HISTORY OF PRESENT ILLNESS: The patient is an 81-year-old female with multiple medical problems, who fell early at home. No syncope is reported, and fall was mechanical. The patient was brought to the emergency room. CT scan of the neck and head CT scan showed no acute findings. The patient also lacerated her right leg, and dressings were applied. Currently, the patient is in pain. It is better controlled at this time. Otherwise, her evaluation was unremarkable. The patient has been weak during the last week or so. She was diagnosed with pneumonia, and she was started on Levaquin. She already received 4 doses. She was supposed to receive Augmentin, but she did not take it because she has a PENICILLIN allergy. She was also prescribed prednisone, but she has not started this medication yet. PAST MEDICAL HISTORY: 1. Coronary artery disease. 2. Chronic pancreatitis. 3. Chronic abdominal pain. 4. COPD. 5. Diabetes mellitus type 2, not on medications. 6. Peripheral vascular disease. 7. History of atrial arrhythmias, the patient is not on anticoagulation. 8. Chronic pain, narcotic dependent. HOME MEDICATIONS: Extensive list is reviewed, and it is documented in the patient's chart. Please refer to the medication reconciliation list. FAMILY HISTORY: Reviewed and not pertinent to the patient's current condition. SOCIAL HISTORY: The patient lives by herself. She quit smoking cigarettes a [facility] [address] [place] [address] HISTORY AND PHYSICAL Name: FLETCHER PATRICIO Room #: [address] [place] [address]#: [id number] Admission: 12/09/16 Attend Phys: Rosemarie Estes MD Discharge: Date of : 34 Report #: [id number] couple of months ago. She is a lifelong smoker. She does not drink alcohol. REVIEW OF SYSTEMS: As above in HPI section, all others negative. PHYSICAL EXAMINATION: GENERAL: The patient is an elderly female who is in no apparent distress. She is alert and oriented x3. VITAL SIGNS: Her blood pressure is 136/85, heart rate is 95, respiration is 16, and temperature is 97.6. HEENT: Pupils are equal. Eye movements are normal. The patient has anicteric sclerae. NECK: Supple. Thyromegaly is not palpated. ORAL MUCOSA: Moist. EARS: Deferred. RESPIRATORY: The patient has diminished respiratory sounds bilaterally. She has no crackles or wheezes. CARDIOVASCULAR: The patient has regular rhythm and rate. She has no murmurs, gallops or rubs. GASTROINTESTINAL: Abdomen is soft, nondistended and nontender. Bowel sounds are present. Hepatomegaly or splenomegaly is not palpated. MUSCULOSKELETAL: The patient has no edema, cyanosis or clubbing. Range of motion is somewhat limited due to pain. NEUROLOGIC: The patient is alert and oriented x3. Her examination is nonfocal. SKIN: The patient has multiple ecchymosis, and superficial abrasion on the right barnes. LABORATORY DATA: Metabolic profile is unremarkable. CBC: The patient has mild anemia, with hemoglobin of 9.8, which is her chronic baseline. IMAGING STUDIES: Reviewed, and as noted, CT scan of the brain and CT scan of the neck showed no fractures and no acute findings. ASSESSMENT AND PLAN: 1. Mechanical fall. No fractures. The patient will be assessed by physical therapist and occupational therapist. She may need to go to the assisted facility, as the patient lives alone, and she may not be safe to return home immediately after hospitalization. 2. Generalized weakness, resulting fall. Likely due to recent pneumonia, which was diagnosed as an outpatient. Levaquin will be continued. The patient will be treated with IV fluids. 3. Recent pneumonia, diagnosed as an outpatient. The patient is on Levaquin, and so far received 4 doses. This will be continued. The patient was supposed to take Augmentin for suspected aspiration, but she did not take it because she has PENICILLIN allergy. We will start the patient on Flagyl, as well as prednisone as recommended by the patient's neuropsychologist. [address] [address] HISTORY AND PHYSICAL Name: FLETCHER PATRICIO Room #: 408-P [facility] Christine Hawkins#: [id number] Admission: 12/09/16 Attend Phys: Rosemarie Estes MD Discharge: Date of : 34 Report #: [id number] The patient and her family request, we will ask neuropsychologist to evaluate the patient while she is here. 4. Tremors and speech difficulty. This is not acute, but has been going on for last few weeks. The patient would like to see a neurologist. Consultation is requested. 5. Chronic pancreatitis. Stable. The patient will be continued on Creon, unchanged. 6. Chronic pain syndrome. OxyContin and oxycodone combination will be renewed home regimen. The patient takes OxyContin 10 mg in the morning, and oxycodone 10 mg every 4 hours as needed. By: 1409 1432 Rosemarie Estes MD /nt
--- NOTE | ~2016-12-09 | EKG ---
[address] [address] ELECTROCARDIOGRAM REPORT Name: FLETCHER PATRICOI Room #: 408-P ADM [facility] M.R.#: [id number] Admission: 12/09/16 Attend Phys: Rosemarie Estes MD Discharge: Date of : 34 Report #: [id number] THIS REPORT FOR: //name// [facility] ED Test Date: 2016-12-09 Test Time: 03:43:02 Pat Name: FLETCHER PATRICIO Department: Room: [facility] Gender: F Data Modeler: DENISSE : 1935 Requested By: Redd Bedolla Order Number: [id number] MD: Fernando Arredondo Measurements Intervals Wright Rate: 89 P: 71 [place]: 169 QRS: 63 QRSD: 85 T: 64 QT: 364 QTc: 443 Interpretive Statements Sinus rhythm Nonspecific T abnormalities, anterior leads Compared to ECG 10/19/2016 07:22:13 Atrial premature complexes no longer present early R wave no longer present Electronically Signed On 12-09-2016 7:53:15 CDT by Fernando Arredondo [email or web address] <ELECTRONICALLY SIGNED> By: Fernando Arredondo MD, [facility] 12/09/16 0753 [id number] 0343 Fernando Arredondo MD, [facility] /EPI
--- NOTE | ~2016-12-09 | HC ---
[facility] [place] [address] CONSULTATION Name: FLETCHER PATRICIO Room #: 408-P [facility] M.R.[facility] [id number] Admission: 12/10/16 Attend Phys: Rosemarie Estes MD Discharge: 12/11/16 Date of : 34 Report #: [id number] THIS REPORT FOR: //name// CC: Homer PeñaKatie Stovall DATE OF SERVICE: 12/09/2016 HISTORY OF PRESENT ILLNESS: This is an 81-year-old female patient who was evaluated by me for tremor. When further history is taken, it would appear it is more like myoclonic jerking and less like tremor, although some tremor is present. It is not clear how long this is going on. She has been sick since last part of 2015 and this started somewhere in relationship to that. She does not know anything which makes it better or worse, but it is more noticeable when this patient is sick. Otherwise, she does not know anything which makes it better or worse, it is moderately severe. She does not have any other clear cut Parkinson feature associated with this. This started spontaneously, but has led to many falls. Review of systems is very extensive. This patient has numerous medical problems. She has a compression fracture. She has recurrent fall. She feels weak all over the body. She has a history of chronic pancreatitis, coronary artery disease, COPD, diabetes, peripheral vascular arrhythmia, one of the history indicates she either has atrial arrhythmias or atrial fibrillation, but is not on anticoagulation because of the patient's falls. She denies any new ENT, respiratory, GI, , constitutional, dermatological, hematological, psychiatric, throat symptoms. She does have diabetes. She does have back pain and these jerking movements, which has been described above. PAST MEDICAL HISTORY: Positive for these jerking movements. FAMILY HISTORY: Negative for early age stroke. SOCIAL HISTORY: This patient has a very supporting family. I talked to this patient's family in great detail. She has stopped smoking. She does not drink alcohol. The patient's examinations indicate she is alert. She is responsive. She is oriented. Her speech, concentration, fund of knowledge, and memory is at her baseline. Cranial nerve examination 2-12 is unremarkable. Her strength, sensation, reflexes, and tone are symmetrical, although she is very weak in generalized fashion. She does not have any cerebellar sign or papilledema. There is no carotid bruit. There is no meningeal sign. She is a very thin individual who does not have any dysmorphic features of eyes, [address] [address] CONSULTATION Name: FLETCHER PATRICIO Room #: [address] [place] [address] [place] M.R.#: [id number] Admission: 12/10/16 Attend Phys: Rosemarie Estes MD Discharge: 12/11/16 Date of : 34 Report #: [id number] ears, and face. Her hearing and vision is adequate. She does not have a thyroid mass. Heart is regular, but heart sounds look unremarkable. There is no murmur. She does have some rhonchi on both sides, but does not appear to be in marked respiratory difficulty. Her pulses are difficult to feel and she has no edema, cyanosis, or jaundice. Blood pressure is 134/76, respirations 16, pulse is 78, temperature is 98.1. Lab indicate she is anemic with a hemoglobin of 9.8. Her sodium is normal. Her magnesium last time was a trace low. Her albumin is markedly low. She did have a CT scan of the head and that was reviewed and it shows atrophy and increased ventricular size that is consistent with the patient's age. IMPRESSION: 1. Myoclonic like jerking causes not clear for that. 2. Tremor that is in conjunction with the myoclonic jerking. It does not look like classical Parkinson tremor. 3. Numerous medical problems as summarized above. They can all cause encephalopathy and make the symptom worse in this patient. 4. Slightly low magnesium last time that was marginalized and is all likely to be a contributing factor for the patient's symptoms. However, we will recheck and to make sure it has not gone any lower. RECOMMENDATIONS: 1. MRI of the brain. The patient says that she cannot do MRI except for under conscious sedation. She would like to try MRI as an outpatient, an open MRI that can be scheduled when she is dismissed. 2. EEG. 3. Repeat magnesium. 4. Check CPK. 5. If EEG shows some seizure activity, we will start her on Keppra. If EEG does not show any seizure activity, we might give her some trial with Lamictal. We also might try some tremor medication because she has a combination of both. I discussed all of it with the patient's family and the patient. I discussed with them the pros and cons of these approaches and they want to follow this approach. I did talk to them in great detail. I did not make the patient walk because the patient looks pretty unstable in walking. Thank you very much for this referral and we will follow this patient with you. <ELECTRONICALLY SIGNED> By: Corey Dey MD 12/11/16 1926 1738 12 Corey Dey MD /guillermo
--- NOTE | ~2016-12-09 | HC ---
[facility] [place] [address] CONSULTATION Name: FLETCHER PATRICIO Room #: 408-P ADM IN M.R.#: [id number] Admission: 12/10/16 Attend Phys: Rosemarie Estes MD Discharge: Date of : 34 Report #: [id number] THIS REPORT FOR: //name// CC: Homer [place] Stovall PRIMARY CARE PHYSICIAN: Liz Santiago MD REFERRING PHYSICIAN: Rosemarie Estes MD REASON FOR REFERRAL: COPD. HISTORY OF PRESENT ILLNESS: The patient is an 81-year-old white female with many medical problems, presents to the Emergency Room following a fall. She has known COPD. A pulmonary consultation was requested. Initial evaluation in the ER shows no obvious trauma including unremarkable CT neck and CT head. She has mild laceration involving her right leg. The patient has had an uneventful several months. She has had few a hospitalizations during that time period. Last hospitalization was in September 2016. The patient has known COPD. She has smoked most of her life up until recently. Her appetite has been poor lately. As a result, she has lost some weight and has been progressively weakening. Recent hospitalization exacerbated her overall deconditioning and weakness. When she was discharged from the hospital, she went to the rehab. She improved somewhat. She was then sent home. The evening of admission, the patient was standing up with a walker, she states that her feet were quite weak, she felt shaky and eventually subsequently fell. She currently denies any complaints other than the pain in her right barnes area. She denies any dyspnea, chest pain or productive cough. She denies any recent febrile illness. PAST MEDICAL HISTORY: As mentioned above including COPD, tobacco abuse, she had quit smoking a couple of months ago; permanent atrial fibrillation on chronic anticoagulation, which had been on hold due to bleeding concerns; coronary artery disease; history of chronic pancreatitis and chronic abdominal pain, which may be felt to be contributing to her poor appetite and weight loss; diabetes mellitus type 2; and peripheral vascular disease. [facility] [address] [place] [address] CONSULTATION Name: FLETCHER PATRICIO Room #: 408-P [facility] [place] M.R.#: [id number] Admission: 12/10/16 Attend Phys: Rosemarie Estes MD Discharge: Date of : 34 Report #: [id number] PAST SURGICAL HISTORY: Includes coronary artery bypass surgery, abdominal surgery in the past, cholecystectomy, herniorrhaphy, hemorrhoidectomy, and prior stent placement for peripheral vascular disease. ALLERGIES: DEMEROL AND PENICILLIN, REACTIONS UNSPECIFIED. HOME MEDICATIONS: List reviewed and this would include Mucinex, Levaquin, Lasix, Zofran, pentoxifylline, Zocor, Centrum, Colestid, Ventolin, iron supplements, mirtazapine, Creon, nicotine patch, and oxycodone 10 mg once a day. FAMILY HISTORY: Notable for coronary artery disease in the parents. SOCIAL HISTORY: She is , had been living independently in a condo. She has very attentive children who live close by. She has smoked about a pack a day most of her life until recently, I believe dating back to September 2016. She smoked about a pack a day. REVIEW OF SYSTEMS: As mentioned above. It is also notable for progressive weakness over the past several months. Some evidence of malnutrition and weight loss. Otherwise, 10-point system review negative. PHYSICAL EXAMINATION: GENERAL: She is awake, alert, in no apparent distress. VITAL SIGNS: Temperature is 98 degrees Fahrenheit, pulse is 79, respiratory rate is 16, blood pressure 118/69 mmHg, and saturation 90%. HEENT: Normocephalic, atraumatic. NECK: Supple without any lymphadenopathy or thyromegaly. CHEST: Breath sounds are decreased bilaterally without any obvious wheezes or rales. CARDIOVASCULAR: Normal S1 and S2. There are no murmurs or gallop. There is no JVD. There is no carotid bruit. Pulses are 2+/4+ bilaterally. ABDOMEN: Soft, nontender. No organomegaly or masses felt. GENITOURINARY: Deferred. RECTAL: Deferred. EXTREMITIES: No cyanosis, clubbing, or edema. MUSCULOSKELETAL: Remarkable for moderate muscle atrophy and cachexia. LABORATORY DATA: CT head and spine shows no acute traumatic findings. EKG shows premature atrial complexes. TSH measured 6.18. Chest x-ray revealed mild left-sided infiltrates, small pleural effusion along with questionable infiltrates in the right lower lobe. IMPRESSION: [facility] [address] [place] [address] CONSULTATION Name: FLETCHER PATRICIO Room #: 408-P ADM IN M.R.#: [id number] Admission: 12/10/16 Attend Phys: Rosemarie Estes MD Discharge: Date of : 34 Report #: [id number] 1. Recurrent falls due to progressive weakness and debility. 2. Questionable left lower lobe infiltrate/pneumonia, we will need to consider possible aspiration ____ negative in this patient with advanced age, weakness and debility. 3. History of tobacco use having quit smoking a couple of months ago. 4. Profound cachexia with protein-calorie malnutrition. 5. Anemia, normocytic and normochromic, likely due to chronic disease. 6. Chronic obstructive pulmonary disease, severity unknown. We will continue bronchodilator therapy. 7. Permanent atrial fibrillation, anticoagulation had to be discontinued due to recent falls and anemia. The patient's Xarelto was discontinued. The patient had been on Plavix. 9. Chronic pancreatitis, chronic abdominal pain, likely contributing to malnutrition. She is on supplements. 10. Severe peripheral vascular disease, prior stent placement, again she was also on chronic anticoagulation for this, which again had been discontinued. RECOMMENDATION AND DISCUSSION: The patient's biggest problem appears to be progressive weakness and debility along with malnutrition. This is resulting in recurrent falls. I am not certain that the patient can reverse this problem with increased caloric take. Suspect her condition will progressively worsen. This was discussed in detail with the patient's family including the daughter and the son. They understand. We also discussed that living independently would probably not be an option any longer and placement may be necessary. We will continue bronchodilators. DVT and GI prophylaxis will be initiated. In terms of the left lower lobe infiltrate, this may be related to recent fall resulting in pulmonary contusion. Cannot rule out pneumonia. May need to start antibiotics if the patient is febrile with productive cough. Thank you for the consultation. <ELECTRONICALLY SIGNED> By: En Stovall MD 12/11/16 1330 1107 1411 En Stovall MD /nt
[~2016-12-09 02:51] MED LIST changes: -NYSTATIN 1100000 U/M SW&SWALLOW
[2016-12-09 02:53] VITALS: BP 119/83
[2016-12-09 03:41] LABS: HEMATOCRIT 29.6 % (37.0-47.0); HEMOGLOBIN 9.8 gm/dL (12.0-15.0); MCH 30.7 pg (26.0-34.0); MCHC 33.2 g/dL (28.0-37.0); MCV 92.5 fL (80.0-100.0); RBC 3.2 mil/uL (4.20-5.00); RDW 16.2 % (10.5-14.5); WBC 10.6 thou/uL (4.0-11.0)
[2016-12-09 03:46] LABS: ANION GAP 6 mmol/L (7-16); BUN 14 mg/dL (7-18); CALCIUM 8.6 mg/dL (8.5-10.1); CHLORIDE 104 mmol/L (98-107); CO2 29 mmol/L (21-32); GLUCOSE 104 mg/dL (70-99); POTASSIUM 3.9 mmol/L (3.5-5.1); SODIUM 139 mmol/L (136-145)
[2016-12-09 03:54] LABS: APTT 27.6 Seconds (24.5-32.8); INR 1.1; PROTIME 11.6 Seconds (9.3-11.4); TROPONIN-I < 0.04 ng/mL (<0.04-0.07)
[2016-12-09 08:00] VITALS: BP 118/72
[2016-12-09] MEDS ORDERED: MUCINEX TA600 MG/TA2 PO (08:53)
[2016-12-09] MEDS ORDERED: LEVAQUIN 500 M500 M2 PO (08:54)
[2016-12-09] MEDS ORDERED: NYSTATIN 1100000 U/M SW&SWALLOW (08:55)
[2016-12-09 12:48] VITALS: BP 136/85
[2016-12-09 15:42] VITALS: BP 134/76
[2016-12-09 18:01] LABS: MAGNESIUM 1.6 mg/dL (1.8-2.4)
[2016-12-09 19:55] VITALS: BP 111/69
[2016-12-10 00:40] VITALS: BP 108/66
[2016-12-10 04:55] VITALS: BP 110/68
[2016-12-10 05:59] LABS: ABSOLUTE NEUTROPHILS 4.5 thou/uL (1.4-8.2); BASOPHILS 0.5 % (0.0-2.0); EOSINOPHILS 2.9 % (0.0-3.0); HEMATOCRIT 28.2 % (37.0-47.0); HEMOGLOBIN 9.3 gm/dL (12.0-15.0); LYMPHOCYTES 24.9 % (24.0-44.0); MANUAL DIFF NO; MCH 30.7 pg (26.0-34.0); MCHC 32.9 g/dL (28.0-37.0); MCV 93.4 fL (80.0-100.0); PLATELET COUNT 283 thou/uL (150-400); POLYS 63.7 % (36.0-66.0); RBC 3.02 mil/uL (4.20-5.00); RDW 16.5 % (10.5-14.5); WBC 7.1 thou/uL (4.0-11.0)
[2016-12-10 06:07] LABS: CALCIUM 8.6 mg/dL (8.5-10.1); CREATININE 0.8 mg/dL (0.6-1.3); POTASSIUM 3.8 mmol/L (3.5-5.1)
[2016-12-10 08:12] VITALS: BP 118/69
[2016-12-10 15:50] VITALS: BP 99/56
[2016-12-10 20:00] VITALS: BP 105/56
[2016-12-11] VITALS: BP 120/71
[2016-12-11 04:00] VITALS: BP 136/77
[2016-12-11 08:30] VITALS: BP 120/72
[2016-12-11] MEDS ORDERED: OXYCONTIN10 M1 PO (11:44)
[2016-12-11] MEDS ORDERED: LEVAQUIN 500 M500 M2 PO (11:44)
[2016-12-11] MEDS ORDERED: OXYCODONE HCL 55 MG PO (11:44)
[2016-12-11] MEDS ORDERED: FLAGYL500 MG PO (11:44)
[2016-12-11] MEDS ORDERED: NYSTATIN 1100000 U/M SW&SWALLOW (11:44)
== END 2016-12-11 16:40 | DRG 947 ==
LOC: ER 02:51 → EROBS 06:04 → 4N 06:04
PROVIDERS: Emergency Medicine; Internal Medicine Endocrinology, Diabetes & Metabolism; Psychiatry & Neurology Neuromuscular Medicine
DX: R53.81 Other malaise (principal); E43 Unspecified severe protein-calorie malnutrition; J69.0 Pneumonitis due to inhalation of food and vomit; F11.20 Opioid dependence, uncomplicated; K86.1 Other chronic pancreatitis; Z68.1 Body mass index [BMI] 19.9 or less, adult; W06.XXXA Fall from bed, initial encounter; K21.9 Gastro-esophageal reflux disease without esophagitis; J44.9 Chronic obstructive pulmonary disease, unspecified; I25.10 Atherosclerotic heart disease of native coronary artery without angina pectoris; R10.9 Unspecified abdominal pain; E11.51 Type 2 diabetes mellitus with diabetic peripheral angiopathy without gangrene; R25.1 Tremor, unspecified; G89.4 Chronic pain syndrome; D64.9 Anemia, unspecified; I48.2 Chronic atrial fibrillation; Z95.1 Presence of aortocoronary bypass graft; Z90.49 Acquired absence of other specified parts of digestive tract; Z95.820 Peripheral vascular angioplasty status with implants and grafts; Z98.42 Cataract extraction status, left eye; Z98.41 Cataract extraction status, right eye; Z88.0 Allergy status to penicillin; Z88.6 Allergy status to analgesic agent; Z88.8 Allergy status to other drugs, medicaments and biological substances; Z87.891 Personal history of nicotine dependence; Z79.01 Long term (current) use of anticoagulants; Z91.81 History of falling; Z82.49 Family history of ischemic heart disease and other diseases of the circulatory system
CPT/HCPCS: 10091

== ENCOUNTER → 2017-01-14 | Outpatient (CLI) | payer OTHER ==
[~2017-01-14] MED LIST changes: +FLAGYL500 MG PO; +NYSTATIN 1100000 U/M SW&SWALLOW; +OXYCODONE HCL 55 MG PO
== END ==
LOC: RAD 08:21
DX: J18.9 Pneumonia, unspecified organism (principal); J44.9 Chronic obstructive pulmonary disease, unspecified; R06.02 Shortness of breath

== ENCOUNTER 2017-10-13 05:29 | Day surgery (SDC) | payer OTHER ==
[~2017-10-13] VITALS: Ht 162.6 cm; Wt 50.3 kg
--- NOTE | ~2017-10-13 | O ---
[facility] [place] [address] OPERATIVE REPORT Name: FLETCHER PATRICIO Room #: 150-6 [facility]#: [id number] Admission: 10/13/17 Attend Phys: Reji Wall MD Discharge: Date of : 34 Report #: [id number] THIS REPORT FOR: //name// CC: Liz Wall DATE OF SERVICE: 10/13/[address] Reji Wall and Dr. Liz Santiago. PREOPERATIVE DIAGNOSIS: Skin and subcutaneous cystic mass on the left upper thigh measuring 2.5 x 1.5 cm. POSTOPERATIVE DIAGNOSIS: Skin and subcutaneous cystic mass on the left upper thigh measuring 2.5 x 1.5 cm. PROCEDURE: Excision of a 2.5 x 1.5 cm cystic mass of the left upper thigh with complex layered closure. SURGEON: Reji Wall MD ANESTHESIA: Local IV sedation. DESCRIPTION OF PROCEDURE: The patient was brought to the operating room and placed on operative table in supine position. Sequential compression devices were in place for DVT prophylaxis. There was no indication for preoperative antibiotics. The patient underwent IV sedation and the left upper thigh was prepped and draped in a sterile fashion. Skin and subcutaneous tissue were then infiltrated with 0.5% Marcaine and 1% Xylocaine in a 1:1 mixture. An elliptical skin incision was performed around this skin and subcutaneous cystic mass using #15 scalpel blade. Hemostasis obtained using electrocautery. The mass was completely excised and sent to pathology. Meticulous hemostasis was checked and obtained in the area using the electrocautery. Deep and superficial subcutaneous tissue was then reapproximated using simple interrupted 2-0 chromic sutures and the skin then closed with a running 4-0 subcuticular Vicryl stitch. The wound was then dressed with Mastisol, 1/2-inch Steri-Strips cut in half, Telfa, 4 x 4 gauze, sponge and tape. The patient was then taken to the recovery room awake, alert and in good condition. ESTIMATED BLOOD LOSS: Less than 5 mL. [facility] [address] [place] [address] OPERATIVE REPORT Name: FLETCHER PATRICIO Room #: 150-6 [facility]#: [id number] Admission: 10/13/17 Attend Phys: Reji Wall MD Discharge: Date of : 34 Report #: [id number] The patient tolerated procedure well. All sponge, lap and instrument counts correct x 2. <ELECTRONICALLY SIGNED> By: Reji Wall MD 10/13/17 1359 1135 1145 Reji Wall MD /nt
--- NOTE | ~2017-10-13 | H ---
[facility] [place] [address] HISTORY AND PHYSICAL Name: LFETCHER PATRICIO Room #: 150-6 [facility]#: [id number] Admission: 10/13/17 Attend Phys: Reji Wall MD Discharge: Date of : 34 Report #: [id number] THIS REPORT FOR: //name// CC: Liz Wall PATIENT OF: Dr. Reji Wall and Dr. Liz Santiago. HISTORY OF PRESENT ILLNESS: The patient is an 82-year-old white female who presents for followup of a left inguinal abscess, which is resolved. There is a palpable cystic mass in this area and we discussed excision to prevent recurrence of the infection. After preoperative evaluation by her peeler operator and discussion on stopping her Plavix, she now present for excision of the cystic mass. PAST MEDICAL HISTORY: Arthritis, COPD, diabetes, peripheral vascular disease with femoral artery stents in 2016. MEDICATIONS: Pantoprazole, , Lasix, Plavix, simvastatin, pentoxifylline, oxycodone, Ventolin, albuterol, Nitrostat, Creon, probiotic, ferrous sulfate, ipratropium-albuterol, multivitamin, Caltrate, and potassium chloride. ALLERGIES: PENICILLIN and DEMEROL. FAMILY HISTORY: Noncontributory. SOCIAL HISTORY: The patient is , quit smoking in 2016. Drinks alcohol occasionally. REVIEW OF SYSTEMS: Pertinent positives as above. Full review of systems as per the electronic medical record in the office. PHYSICAL EXAMINATION: GENERAL: Well-developed, well-nourished, elderly white female, in no acute distress. VITAL SIGNS: Stable. She is afebrile. HEENT: Sclerae are nonicteric. Mucous membranes are moist and pink. NECK: There is no adenopathy. LUNGS: Clear to auscultation bilaterally. CARDIOVASCULAR: Regular rate and rhythm. No murmurs, S3 or S4. Normal PMI. ABDOMEN: Soft, flat, nontender, no palpable masses, no organomegaly, no hernias. EXTREMITIES: Left upper thigh, there is a healing cystic mass. No other clubbing, cyanosis, or edema. NEUROLOGIC: Intact with a clear mental status. IMPRESSION: An 82-year-old white female with a cystic mass on the left anterior [address] [address] HISTORY AND PHYSICAL Name: FLETCHER PATRICIO Room #: 150-6 [facility]..#: [id number] Admission: 10/13/17 Attend Phys: Reji Wall MD Discharge: Date of : 34 Report #: [id number] thigh. I fully discussed with the patient the diagnosis, prognosis, and treatment options and recommended excision of this mass, she states she understands and agrees to proposed surgery. PLAN: We will perform excision of a cystic mass in the left anterior thigh under local anesthesia with IV sedation as an outpatient at [facility]. The procedure and its risks, benefits and possible complications were fully discussed with the patient, she states she understands and agrees to proposed surgery. <ELECTRONICALLY SIGNED> By: Reji Wall MD 10/13/17 1143 0954 1019 Reji Wall MD /nt
--- NOTE | ~2017-10-13 | S ---
[facility] [employer] [place] [address] SURGICAL PATH RPT PROCEDURE Name: MAI ALLEN Room #: DEP [facility] M.Bear.#: [id number] Admission: 10/13/17 Date of : 33 Discharge: 10/13/17 Report #: [id number] Path Case #: [id number] PATHOLOGY REPORT COLLECTION DATE: 10/13/2017 RECEIVED DATE: 10/13/2017 SUBMITTING PHYS: Dr. Reji Wall OTHER PHYS: Dr. Liz Peña SPECIMEN(S) RECEIVED: A.Mass Left anterior thigh * * * * * * * * * * * * FINAL DIAGNOSIS: "Mass left anterior thigh", excision: - Skin and subcutaneous tissue with epidermal inclusion cyst. (CLW:pit; 10/14/2017) PATHOLOGIST: Cher Dhaliwal M.D. REPORT ELECTRONICALLY SIGNED BY: Cher Dhaliwal M.D. DATE/TIME: 10/14/2017 21:05 * * * * * * * * * * * * GROSS PATHOLOGY: The specimen is received in formalin, labeled "Mai Allen left thigh mass," and consists of an ellipse of pink-oreilly skin measuring 1.9 x 1.2 x 0.3 cm with an underlying ruptured cystic structure measuring 1.8 x 1.6 x 1.1 cm. Inspector [employer] Castings sections are submitted in cassette A1. (SDY; 10/13/2017) CLINICAL HISTORY: Mass INITIAL CPT CODE(S): 68624 Professional services performed by [facility] at [facility] [address] [place] [address] Technical services performed by [facility] at [address] [place] [address], [address] [address]. [facility] [address] [place] [address] SURGICAL PATH RPT PROCEDURE Name: MAI ALLEN Room #: DEP THERESA Hawkins#: [id number] Admission: 10/13/17 Date of : 33 Discharge: 10/13/17 Report #: [id number] Path Case #: [id number] [facility] [address] [place] [id number] PHONE: [phone] DIRECTOR: Anson Perez M.D. * * * END OF REPORT * * *
[~2017-10-13 05:29] MED LIST changes: +LASIX 20 MG TAB20 MG PO; +PROBIOTIC1 EAC1 PO; +PROTONIX 20 MG20 M1 PO; +VITRON-C TABLE1 EAC1 PO; +ZOCOR 10 MG TAB10 MG PO
[2017-10-13 09:04] LABS: CALCIUM 9.8 mg/dL (8.5-10.1); CREATININE 1.1 mg/dL (0.6-1.0); POTASSIUM 4.5 mmol/L (3.5-5.1)
[2017-10-13] MEDS ORDERED: PERCOCET PO (11:38)
[2017-10-13 13:05] VITALS: BP 120/60
[2017-12-12] MEDS ORDERED: LEVAQUIN 250 M250 MG PO (02:52)
[2017-12-12] MEDS ORDERED: STIOLTO RESPIMAT4 GM INH (02:52)
[2017-12-12] MEDS ORDERED: CREON DR 24,001 EACH PO (07:29)
[2017-12-12] MEDS ORDERED: CALCIUM 500 +1 EAC5 PO (07:31)
[2017-12-12] MEDS ORDERED: UNICOMPLEX M TA1 TA1 PO (07:31)
[2017-12-12] MEDS ORDERED: PROBIOTIC1 EAC1 PO (07:33)
[2017-12-12] MEDS ORDERED: VITRON-C TABLE1 EAC1 PO (07:34)
[2017-12-12] MEDS ORDERED: REMERON15 MG PO (07:35)
[2017-12-15] MEDS ORDERED: CEFUROXIME250 MG PO (08:16)
[2017-12-15] MEDS ORDERED: OXYCODONE HCL10 MG PO (08:16)
[2017-12-15] MEDS ORDERED: PREDNISONE 10 M10 MG PO (08:19)
[2017-12-18] MEDS ORDERED: CLOPIDOGREL75 MG PO (09:00)
[2018-01-22] MEDS ORDERED: PROTONIX40 M1 PO (13:04)
[2018-01-22] MEDS ORDERED: METFORMIN HCL500 MG PO (13:04)
[2018-02-04] MEDS ORDERED: OXYCODONE HCL10 MG PO (14:30)
[2018-02-04] MEDS ORDERED: IPRATROPIU0.2 MG/1 M INH (14:30)
[2018-02-04] MEDS ORDERED: VANCOMYCIN HCL10 GM PO (14:30)
[2018-02-04] MEDS ORDERED: LASIX 40 MG TAB40 M2 PO (14:31)
== END 2017-10-13 12:29 | disposition home or self-care (01) ==
LOC: OR 05:29 → TBA 05:29 → OR 09:24
PROVIDERS: Surgery
DX: L72.0 Epidermal cyst (principal); E11.9 Type 2 diabetes mellitus without complications; J44.9 Chronic obstructive pulmonary disease, unspecified; M19.90 Unspecified osteoarthritis, unspecified site; I73.89 Other specified peripheral vascular diseases; Z79.899 Other long term (current) drug therapy; Z79.891 Long term (current) use of opiate analgesic; Z88.0 Allergy status to penicillin; Z88.8 Allergy status to other drugs, medicaments and biological substances
CPT/HCPCS: 50010; 50101; 50386; 50403; 56524; 56528; 62110; 62850; 70005

== ENCOUNTER → 2018-06-16 | Outpatient (CLI) | payer OTHER ==
[~2018-06-16] MED LIST changes: +CALCIUM 500 +1 EAC5 PO; +CEFUROXIME250 MG PO; +CLOPIDOGREL75 MG PO; +IPRATROPIU0.2 MG/1 M INH; +LEVAQUIN 250 M250 MG PO; +METFORMIN HCL500 MG PO; +PERCOCET PO; +PREDNISONE 10 M10 MG PO; +PROTONIX40 M1 PO; +STIOLTO RESPIMAT4 GM INH; +VANCOMYCIN HCL10 GM PO
== END ==
LOC: RAD 11:35
DX: J44.9 Chronic obstructive pulmonary disease, unspecified (principal); J84.10 Pulmonary fibrosis, unspecified

== ENCOUNTER → 2018-06-28 | Outpatient (CLI) | payer OTHER ==
--- NOTE | ~2018-06-28 | SLE ---
[facility] [place] [address] POLYSOMNOGRAPHY STUDY Name: FLETCHER PATRICIO [facility] [id number] Admission: 06/28/18 Attend Phys: Francisco Robert MD Discharge: Date of : 34 Report #: [id number] THIS REPORT FOR: //name// CC: Francisco Peña-Katie Stovall MD DATE OF SERVICE: 06/28/2018 SLEEP STUDY ATTENDING PHYSICIAN: Dr. En Stovall. DATE OF STUDY: 06/28/2018. The patient is 83 years old who weighs 112 pounds and is 64 inches tall with a BMI of 19.6. The patient's Oconto score was 12 out of a maximum of 24. The patient is not on any chronic sedatives or narcotic pain medications. A sleep study was performed at [facility] to rule out the possibility of sleep apnea. During the night study, the patient spent 515 minutes in bed and slept for 288 minutes, with a low sleep efficiency of 56%. Sleep latency was 34.8 minutes with a REM latency of 325.8 minutes. Overall, sleep architecture showed normal stage 1 sleep; increased stage 2 sleep, which was 72% of total sleep time; normal N3 sleep and normal REM sleep. During the night study, the patient had no apneas. There were only 6 hypopneas. The patient's apnea-hypopnea index was only 1.2 per hour, with a REM index of 6.2 per hour. The patient's supine index was 0 per hour. EKG monitoring revealed an average heart rate of 84 beats per minute. No sustained arrhythmias were observed. PLMS were seen at an index of 35 per hour and only 2 per hour caused EEG arousals. Nocturnal oximetry study revealed an average oxygen saturation of 92% with a lowest of 85%. 36 minutes were spent with oxygen saturation of less than 89%. There was a sustained pattern of mild nocturnal hypoxia, suggesting hypoventilation. Due to low AHI, the patient did not meet the split-night criteria for CPAP initiation. IMPRESSION: [facility] [address] [place] [address] POLYSOMNOGRAPHY STUDY Name: SINTIAFLETCHER J Room #: REG [facility]#: [id number] Admission: 06/28/18 Attend Phys: Francisco Robert MD Discharge: Date of : 34 Report #: [id number] 1. No clinically significant sleep disordered breathing. The patient's apnea-hypopnea index for the entire night was only 1.2 per hour. 2. Reduced sleep efficiency of only 56%, resulting from sleep onset and sleep maintenance insomnia. 3. Moderate periodic limb movements of sleep, without any significant EEG arousals. The patient's arousal index was only 2 per hour. 4. Mild nocturnal hypoxia, suggesting hypoventilation. RECOMMENDATIONS: 1. The patient did not meet the split-night criteria for CPAP initiation. 2. The patient had reduced sleep efficiency of 56%, which may explain the patient's subjective hypersomnia. If insomnia is a chronic condition, then it should be treated according to the etiology. 3. Avoid PHARMACEUTICAL REPRESENTATIVE depressants. 4. Cautioned regarding driving until the patient's hypersomnia is resolved. 5. PLMS does not need to be treated unless the patient has symptoms of restless legs during the day. 6. The patient would benefit from 1 liter of oxygen at nighttime. <ELECTRONICALLY SIGNED> By: Francisco Robert MD 07/03/18 0956 2330 0003 Francisco Robert MD /nt
== END ==
LOC: SLEEPLAB 15:59
DX: G47.33 Obstructive sleep apnea (adult) (pediatric) (principal); G47.61 Periodic limb movement disorder; R09.02 Hypoxemia

== ENCOUNTER 2019-01-07 21:31 | Inpatient (IN) | payer OTHER ==
[~2019-01-07] VITALS: Ht 162.6 cm; Wt 46.9 kg
[2019-01-07 21:32] VITALS: BP 151/88
[2019-01-07 22:04] LABS: ABSOLUTE NEUTROPHILS 4.8 thou/uL (1.4-8.2); BASOPHILS 1.9 % (0.0-2.0); HEMOGLOBIN 10.7 gm/dL (12.0-15.0); LYMPHOCYTES 29.6 % (24.0-44.0); MCHC 33.3 g/dL (28.0-37.0); MCV 96.1 fL (80.0-100.0); MONOCYTES 9.8 % (1.0-8.0); PLATELET COUNT 294 thou/uL (150-400); POLYS 57.7 % (36.0-66.0); RBC 3.33 mil/uL (4.20-5.00); RDW 15.7 % (10.5-14.5); WBC 8.4 thou/uL (4.0-11.0)
[2019-01-07 22:12] LABS: CALCIUM 8.5 mg/dL (8.5-10.1); CREATININE 0.9 mg/dL (0.6-1.0); POTASSIUM 4.5 mmol/L (3.5-5.1)
[2019-01-07 22:19] LABS: ALBUMIN 2.5 g/dL (3.4-5.0); TOTAL BILIRUBIN 0.5 mg/dL (<0.1-1.0); TOTAL PROTEIN 5.9 g/dL (6.4-8.2)
[2019-01-07 23:33] LABS: URINE BILIRUBIN NEGATIVE (Negative); URINE BLOOD 1+ (Negative); URINE CLARITY CLEAR; URINE COLOR YELLOW; URINE GLUCOSE-RANDOM* NEGATIVE (Negative); URINE KETONES TRACE (Negative); URINE LEUKOCYTES-REFLEX TRACE (Negative); URINE NITRITE-REFLEX NEGATIVE (Negative); URINE PROTEIN (DIPSTICK) NEGATIVE (Negative); URINE SPECIFIC GRAVITY 1.015 (1.005-1.035); URINE UROBILINOGEN 0.2 E.U./dl (0.2-1.0)
[2019-01-07 23:51] LABS: BACTERIA-REFLEX None Seen /HPF (None Seen); CASTS None Seen /LPF (None Seen); CRYSTALS None Seen /LPF (None Seen); MUCUS None Seen strn/LPF (None Seen); SQUAMOUS None Seen /LPF (0-3); URINE RBC 0-2 Rare /HPF (0-2); URINE WBC-REFLEX None Seen /HPF (0-5)
[2019-01-08] VITALS (8 sets, daily range): BP systolic 94–131; BP diastolic 50–69
--- NOTE | 2019-01-08 04:37 | NUR ---
ASSESSMENT CHARTED. NORMAL SALINE AND VANCO INFUSING. FREQUENT VOIDING. PLACED ON 1.5 LITERS OXYGEN BY RT FOR LOW O2. HX OF C.DIFF, BUT PATIENT NOT HAVING DIARRHEA AT THIS TIME. ABX BEING GIVEN. POSSIBLE MENNINGITIS, PATIENT IS REFUSING SPINAL TAP, SO ON DROPLET PRECAUTIONS. POSITIVE FOR PNEUMONIA. PLAN OF CARE TO CONTINUE ABX.
[2019-01-08 05:36] LABS: CALCIUM 7.8 mg/dL (8.5-10.1); CREATININE 0.8 mg/dL (0.6-1.0); POTASSIUM 3.9 mmol/L (3.5-5.1)
--- NOTE | 2019-01-08 10:36 | EKG ---
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1935 Requested By: Christian Urbina Order Number: [id number] MD: Valeriano Dc Measurements Intervals [place] Rate: 84 P: 85 [place]: 179 QRS: 63 QRSD: 70 T: 60 QT: 365 QTc: 432 Interpretive Statements Sinus rhythm Probable left atrial enlargement Borderline low voltage, extremity leads Compared to ECG 01/23/2018 22:14:49 Atrial flutter no longer present Prolonged QT interval no longer present Electronically Signed On 01-08-2019 10:36:29 CDT by Valeriano Dc [email or web address] ��������������������������������������������� <ELECTRONICALLY SIGNED> ���������������������������������������� By: Valeriano Dc MD ��������������������������������������������� 01/08/19 1036 37 37 Valeriano Dc MD /EPI
--- NOTE | 2019-01-08 18:39 | NUR ---
PT BLOOD SUGAR WAS HIGH BEFORE DINNER HOWEVER PT HAD BEEN SNACKING. PT STATES SHE DOES NOT TAKE INSULIN AT HOME AND USUALLY HER BLOOD SUGAR RUNS LOW. PT GIVEN HALF THE RECCOMENDED DOSE OF LISPRO AT DINNER. WILL PASS ON TO PORT SURVEYOR TO MONITOR FOR HYPO/HYPER GLYCEMIA.
--- NOTE | 2019-01-08 19:49 | NUR ---
ASSUMED CARE OF PT AT 0700. PT WAS ALERT AND ORIENTED TIMES 4. PT WAS DROWSY AND REPORTED PAIN WHEN ANY PRESSURE WAS PLACED ON THE STERNUM. KERNIG'S AND NUDZINSKI'S SIGN ASSESSMENTS WERE PERFORMED ON PT DUE TO REPORTS OF NECK STIFFNESS WITH NEGATIVE RESULTS. PT WAS SWABBED FOR MRSA AND STREP BY NURSE. PT REMAINED AFEBRILE THROUGHOUT SHIFT. PT WAS SINUS RHYTHM THROUGHOUT SHIFT. PT WAS ABLE TO AMBULATE TO CHAIR AND AROUND UNIT TWICE WITH X1 ASSISTANCE AND GAIT BELT. RT FOUND PT HAD O2 SAT OFF 99% WITHOUT O2 RUNNING, SO PT WAS PUT ON RA DURING THE DAY. PT WAS FOUND TO HAVE A BLOOD GLUCOSE OF 396 AT 1619 WHICH PT REPORTS IS HIGHER THAN NORMAL. PT BLOOD GLUCOSE WAS REASSESSED AT 1730 AND WAS FUND TO HAVE A BLOOD GLUCOSE OF 357. SLIDING SCALE PRESCRIPTION SAID TO GIVE 12 UNITS, BUT ADDISON BRADY RN GAVE 6 UNITS TO PT PER NURSING JUDGEMENT. WILL CONTINUE TO MONITOR PT.
--- NOTE | 2019-01-08 20:07 | NUR ---
AGREE WITH ASSESSMENTS AND NOTES FOR THIS PT BY STUDENT NURSE FILI. ADDISON BRADY
--- NOTE | 2019-01-09 02:00 | NUR ---
ASSESSMENTS CHARTED. ANTIBIOTICS GIVEN CHARTED. MRSA TEST NEGATIVE. PLAN OF CARE TO CONTINUE ABX TREATMENTS FOR PNEUMONIA.
[2019-01-09 04:22] VITALS: BP 153/100
[2019-01-09 07:26] VITALS: BP 116/68
[2019-01-09 10:55] VITALS: BP 113/67
--- NOTE | 2019-01-09 14:18 | NUR ---
ASSUMED CARE AT SHIFT CHANGE, ASSESMENT DOCUMNETED. DENIES ANY DISCOMFORT. UP WALKING THE HALLWAYS WITH WALKER. WILL CONTINUE WITH POC.
--- NOTE | 2019-01-09 15:28 | NUR ---
patient sleeping. Admits with pna. Spoke with dtr at bedside. Patient resides in independent apt at [facility]. All needs on one level. Patient has a cane/walker. Uses as needed in apt and community. PCP is Dr Liz Peña. Therapy evals in process and reviewed. Possible HH at co. Discussed with dtr they prefer [facility] HH care she has rec in past. 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 Patient to transfer to this evening.
[2019-01-09 17:33] VITALS: BP 128/60
--- NOTE | 2019-01-09 18:34 | NUR ---
PATIENT TRANSFERRED FROM [facility], REPORT FROM JULY/RN. PATIENT ALERT AND ORIENTED CAN BE FORGEFUL. DENIES PAIN UPON ARRIVAL TO THE UNIT. PATIENT UP WITH ASSIST X 1 WITH WALKER. BLOOD SUGAR MONITORING BS 159, PATIENT REFUSED INSULIN AND REFUSED INSULIN EARLIER ON 2 NORTH REPORTED JULY/RN. NOT SURE OF LAST BOWEL MOVEMENT, BUT PATIENT PASSING GAS. PATIENT MAY LEAVE TOMORROW WITH HOME HEALTH, LIVES AT [facility]. WILL CONTINUE TO MONITOR.
[2019-01-09 20:37] VITALS: BP 112/64
[2019-01-09 20:38] VITALS: BP 112/64
--- NOTE | 2019-01-10 05:03 | NUR ---
Assumed pt care at 1900. Pt A/OX4,denies pain on assessment. Up with SBA/RW to the bathroom,did have one episode of lose stools no N/V or abd pain. VSS.C/o heartburn earlier,TUMS ordered and administered with relief reported. Pt noted to have 1+ pitting edema on av ankles encouraged to elevate feet when in bed. Resting with no distress noted at this time.Call light/personal items within reach,will continue to monitor pt.
[2019-01-10 07:30] VITALS: BP 138/78
[2019-01-10 09:44] VITALS: BP 112/64
--- NOTE | 2019-01-10 12:28 | NUR ---
SW reviewed chart and spoke with nursing and attending physician. Pt was [facility] and is progressing towards goals for discharge home tomorrow with services. corporate event planner to fax clinical info to [facility]. GURPREET met with pt at bedside to provide update and discuss discharge plan. Pt is aware and agreeable with discharge plan. GURPREET is following to assist as needed with discharge planning.
--- NOTE | 2019-01-10 12:37 | NUR ---
DP SENT HOME HEALTH REFERRAL TO [facility], PATIENT SHOULD DC TOMORROW. DP WILL CALL FACILITY TO MAKE SURE THEY RECEIVED REFERRAL.
--- NOTE | 2019-01-10 15:28 | NUR ---
PATIENT CARE WAS ASSUMED AT 0715.PATIENT IS ALERT AND ORIENTED.PATIENT HAS SOME CONCERNS OF HAVING LOOSE STOOLS THIS AM. DAUGHTER AT BEDSIDE STATED THAT THE LOOSE STOOLS MAYBE FROM A MEDICATION SHE IS NOT TAKING THAT IS ON HER MED LIST.DOCTOR WAS TOLD ABOUT THE ISSUE AND WENT OVER PATIENT MED LIST AND CONTINUED HOME MEDS.FALL PRECAUTIONS ARE IN PLACE.IV IS INTACT.PATIENT HAS NO COMPLAIN OF PAIN AT THIS TIME.CALL LIGHT,PHONE, AND PRESONAL BELONGINGS ARE WITHIN REACH.
[2019-01-10 21:01] VITALS: BP 138/70
--- NOTE | 2019-01-11 04:01 | NUR ---
Assumed pt care at 1900. Pt A/OX4,VSS.Pt is up with SBA/RW,ambulated a few times in hallway without any problems voiced. Denies pain on assessment.Voiding without any problems,no further diarrhea reported. Medicated with TUMS at HS for heartburn with relief reported.Does have a non productive cough,resting quietly eyes closed no distress noted will continue to monitor pt. Call light/personal items within reach.
[2019-01-11] MEDS ORDERED: CEFUROXIME500 MG PO (09:06)
[2019-01-11 09:56] VITALS: BP 128/70
--- NOTE | 2019-01-11 10:54 | NUR ---
PT. DISCHARGING TODAY TO HOME WITH [facility] FAXED DC ORDERS.SUMMARY SPOKE WITH MANDY IN ADM. SHE RECEIVED DC ORDERS AND WILL NOTIFY PT. TIME OF VISITS.
--- NOTE | 2019-01-11 11:50 | NUR ---
DISCHARGE NOTE: SW reviewed chart and spoke with nursing and attending physician. Pt is medically stable for discharge home today with services. Pt will rerun to her MD apt at [facility] with [facility]. SW met with pt and dtr at bedside to discuss discharge plan. Both are aware and in agreement with discharge plan. Pt will have lunch and then pt s dtr will provide transportation home. Contact info for [facility] placed in pt s discharge summary. liaison planner to fax discharge orders/summary to [facility]. No additional SW needs identified at this time, but is available to assist should needs arise.
--- NOTE | 2019-01-11 12:28 | NUR ---
ASSUMED CARE OF PATIENT AT 0715, PATIENT ALERT AND ORIENTED X 4. UP AB MARCIO IN HER ROOM TO THE BATHROOM. PATIENT C/O SOME LOW BACK PAIN, BUT WANTS TO WAIT TO TAKE ANY MEDICATIONS JUST YET. PATIENT HAS RIGHT AC IV IN PLACE. PATIENT C/O SOB WITH ACTIVITY, SATS 91% ON ROOM AIR. PATIENT HAS HAD 2 LOOSE STOOLS, IMMODIUM GIVEN 1 CAPSULE THIS AM. BILATERAL LUNGS CLEAR/DIMINISHED, SCHEDULED BREATHING TREATMENTS GIVEN THIS AM. BLOOD SUGAR MONITORING ORDERED, REFUSED INSULIN THIS AM, BUT TOOK 3 UNITS WITH HER LUNCH BS 192. PATIENT HAS BILATERAL ARM AND LEG BRUISING NOTED, AND RED AREA TO THE BACK OF RIGHT ARM. DR SHULTZ HERE THIS AM, RECEIVED ORDER FOR DISCHARGE TO HOME WITH HOME HEALTH. PAYIENT WILL DISCHARGE AFTER LUNCH, DAUGHTER PRESENT TO TRANSPORT PATIENT HOME. ALL DISCHARGE PAPERWORK AND ALL PERSONAL BELONGINGS WILL BE SENT WITH THE PATIENT. RIGHT AV IV HAS BEEN REMOVED, PATIENT RECEIVED A SHOWER THIS AM.
--- NOTE | 2019-01-11 13:05 | NUR ---
I have reviewed the documentation by SURESH MICHAEL from 01/11/19 to 01/11/19 and I concur with it. FANTASMA FAIR
== END 2019-01-11 14:15 | disposition home health service (06) | DRG 193 ==
LOC: ER 21:31 → EROBS 23:47 → 2N 23:47 → SICU 01-09 17:28
PROVIDERS: Emergency Medicine; Nurse Practitioner Family; ADMIT Hospitalist
DX: J18.9 Pneumonia, unspecified organism (principal); E43 Unspecified severe protein-calorie malnutrition; Z68.1 Body mass index [BMI] 19.9 or less, adult; I25.10 Atherosclerotic heart disease of native coronary artery without angina pectoris; E11.51 Type 2 diabetes mellitus with diabetic peripheral angiopathy without gangrene; J44.9 Chronic obstructive pulmonary disease, unspecified; E86.0 Dehydration; D64.9 Anemia, unspecified; K21.9 Gastro-esophageal reflux disease without esophagitis; K22.2 Esophageal obstruction; I48.0 Paroxysmal atrial fibrillation; M62.84 Sarcopenia; Z99.81 Dependence on supplemental oxygen; Z95.1 Presence of aortocoronary bypass graft; Z87.891 Personal history of nicotine dependence; Z90.49 Acquired absence of other specified parts of digestive tract; Z95.820 Peripheral vascular angioplasty status with implants and grafts; Z98.42 Cataract extraction status, left eye; Z98.41 Cataract extraction status, right eye; Z87.81 Personal history of (healed) traumatic fracture; Z79.899 Other long term (current) drug therapy; Z88.0 Allergy status to penicillin; Z88.8 Allergy status to other drugs, medicaments and biological substances; Z82.49 Family history of ischemic heart disease and other diseases of the circulatory system
CPT/HCPCS: 10081; 15002

== ENCOUNTER 2019-01-18 13:52 | Emergency (ER) | payer OTHER ==
[~2019-01-18] VITALS: Ht 162.6 cm; Wt 45.4 kg
[~2019-01-18 13:52] MED LIST changes: +CEFUROXIME500 MG PO
[2019-01-18 14:53] LABS: ABSOLUTE NEUTROPHILS 5.4 thou/uL (1.4-8.2); BASOPHILS 1.3 % (0.0-2.0); EOSINOPHILS 3.1 % (0.0-3.0); HEMATOCRIT 30.5 % (37.0-47.0); HEMOGLOBIN 10.2 gm/dL (12.0-15.0); LYMPHOCYTES 30.7 % (24.0-44.0); MCH 31.9 pg (26.0-34.0); MCHC 33.4 g/dL (28.0-37.0); MCV 95.5 fL (80.0-100.0); MONOCYTES 8.9 % (1.0-8.0); PLATELET COUNT 378 thou/uL (150-400); RBC 3.19 mil/uL (4.20-5.00); RDW 16.5 % (10.5-14.5); WBC 9.5 thou/uL (4.0-11.0)
[2019-01-18 14:59] LABS: CALCIUM 10.3 mg/dL (8.5-10.1); CREATININE 1.1 mg/dL (0.6-1.0); POTASSIUM 4.3 mmol/L (3.5-5.1)
[2019-01-18 15:05] LABS: ALBUMIN 2.7 g/dL (3.4-5.0); TOTAL BILIRUBIN 0.3 mg/dL (<0.1-1.0); TOTAL PROTEIN 7.2 g/dL (6.4-8.2)
[2019-01-18 16:29] LABS: URINE BILIRUBIN NEGATIVE (Negative); URINE BLOOD NEGATIVE (Negative); URINE CLARITY CLEAR; URINE COLOR YELLOW; URINE GLUCOSE-RANDOM* NEGATIVE (Negative); URINE KETONES NEGATIVE (Negative); URINE LEUKOCYTES-REFLEX TRACE (Negative); URINE NITRITE-REFLEX NEGATIVE (Negative); URINE PROTEIN (DIPSTICK) NEGATIVE (Negative); URINE SPECIFIC GRAVITY <= 1.005 (1.005-1.035); URINE UROBILINOGEN 0.2 E.U./dl (0.2-1.0)
[2019-01-18 16:35] VITALS: BP 122/69
[2019-01-18] MEDS ORDERED: FLAGYL500 M1 PO (17:11)
== END 2019-01-18 18:27 | disposition home or self-care (01) ==
LOC: ER 13:52
PROVIDERS: Emergency Medicine
DX: R19.7 Diarrhea, unspecified (principal); E11.9 Type 2 diabetes mellitus without complications; I25.810 Atherosclerosis of coronary artery bypass graft(s) without angina pectoris; J44.9 Chronic obstructive pulmonary disease, unspecified; K21.9 Gastro-esophageal reflux disease without esophagitis; I48.91 Unspecified atrial fibrillation; Z90.49 Acquired absence of other specified parts of digestive tract; Z87.891 Personal history of nicotine dependence; Z88.0 Allergy status to penicillin; Z88.8 Allergy status to other drugs, medicaments and biological substances

== ENCOUNTER → 2019-03-08 | Outpatient (CLI) | payer OTHER ==
[~2019-03-08] MED LIST changes: +FLAGYL500 M1 PO
== END ==
LOC: RAD 09:25
DX: J84.9 Interstitial pulmonary disease, unspecified (principal); J44.9 Chronic obstructive pulmonary disease, unspecified

== ENCOUNTER 2019-07-09 14:25 | Inpatient (IN) | payer OTHER ==
[~2019-07-09] VITALS: Ht 162.6 cm; Wt 44.3 kg
[2019-07-09 14:27] VITALS: BP 144/79
[2019-07-09 14:48] LABS: ABSOLUTE NEUTROPHILS 6.4 thou/uL (1.4-8.2); BASOPHILS 0.2 % (0.0-2.0); HEMATOCRIT 27.9 % (37.0-47.0); HEMOGLOBIN 9.2 gm/dL (12.0-15.0); LYMPHOCYTES 4.8 % (24.0-44.0); MCH 31.2 pg (26.0-34.0); MCV 94.5 fL (80.0-100.0); MONOCYTES 4.3 % (1.0-8.0); PLATELET COUNT 406 thou/uL (150-400); POLYS 90.7 % (36.0-66.0); RBC 2.95 mil/uL (4.20-5.00); RDW 16.6 % (10.5-14.5)
[2019-07-09 15:07] LABS: ANION GAP 5 mmol/L (7-16); BUN 14 mg/dL (7-18); CALCIUM 9.2 mg/dL (8.5-10.1); CHLORIDE 95 mmol/L (98-107); CO2 32 mmol/L (21-32); GLUCOSE 197 mg/dL (74-106); POTASSIUM 3.9 mmol/L (3.5-5.1); SODIUM 132 mmol/L (136-145); TROPONIN-I <0.06 ng/mL (<0.06)
[2019-07-09 15:28] LABS: PCO2 36.4 mmHg (35.0-45.0); PO2 56.6 mmHg (80.0-100.0); pH 7.534 (7.360-7.450); sO2 92.6 % (92.0-98.0)
[2019-07-09 18:25] VITALS: BP 133/64
[2019-07-09] MEDS ORDERED: APLISOL INTRADERM (18:35)
[2019-07-09] MEDS ORDERED: ELIQUIS2.5 MG PO (18:36)
[2019-07-09] MEDS ORDERED: AMIODARONE HCL400 MG PO (18:36)
[2019-07-09] MEDS ORDERED: IRON325 M1 PO (18:37)
[2019-07-09] MEDS ORDERED: COLACE100 MG PO (18:37)
[2019-07-09 18:38] VITALS: BP 138/49
[2019-07-09] MEDS ORDERED: FUROSEMIDE 20 M20 MG PO (18:38)
[2019-07-09] MEDS ORDERED: ATROVENT HFA14 GM INH (18:38)
[2019-07-09] MEDS ORDERED: LATANOPROST 0.2.5 ML OPHTHALMIC (18:38)
[2019-07-09] MEDS ORDERED: MONTELUKAST SODI4 M1 PO (18:39)
[2019-07-09] MEDS ORDERED: SUPER THERAVIT1 EACH PO (18:39)
[2019-07-09] MEDS ORDERED: PROTONIX 20 MG20 MG PO (18:39)
[2019-07-09] MEDS ORDERED: MIRTAZAPINE7.5 MG PO (18:39)
[2019-07-09] MEDS ORDERED: PENTOXIFYLLINE400 MG PO (18:39)
[2019-07-09] MEDS ORDERED: RAYOS5 MG PO (18:40)
[2019-07-09] MEDS ORDERED: KLOR-CON 1010 MEQ PO (18:40)
[2019-07-09 19:08] VITALS: BP 131/79
[2019-07-09 19:26] LABS: URINE BILIRUBIN NEGATIVE (Negative); URINE BLOOD NEGATIVE (Negative); URINE CLARITY CLEAR; URINE COLOR YELLOW; URINE GLUCOSE-RANDOM* NEGATIVE (Negative); URINE KETONES NEGATIVE (Negative); URINE LEUKOCYTES NEGATIVE (Negative); URINE NITRITE NEGATIVE (Negative); URINE PROTEIN (DIPSTICK) NEGATIVE (Negative); URINE SPECIFIC GRAVITY <= 1.005 (1.005-1.035); URINE UROBILINOGEN 0.2 E.U./dl (0.2-1.0)
[2019-07-10 00:30] VITALS: BP 141/80
[2019-07-10 04:45] VITALS: BP 134/68
[2019-07-10 08:40] VITALS: BP 147/63
--- NOTE | 2019-07-10 09:25 | EKG ---
[place] [address] [employer] 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 07/10/19 09 36 36 Fernando Arredondo MD, FAC /EPI
--- NOTE | 2019-07-10 09:30 | NUR ---
PT ADMITTED TO ROOM 210 WITH FAMILY AT HER SIDE OFFERING SUPPORT, PRN PAIN MED GIVEN FOR C/O OF BACK PAIN, SLEPT ON AND OFF THRU THE NOC, USING CALL LIGHT APPROPRIATLY FOR ASSIST WITH BEDPAN, REPORT GIVEN TO NEXT SHIFT TO CON'T WITH PPOC.
[2019-07-10 11:08] LABS: BE(vivo) 7.4 mmol/L (-2 to +3); HCO3 31.1 mmol/L (22.0-26.0); PCO2 40.1 mmHg (35.0-45.0); PO2 41.5 mmHg (80.0-100.0); pH 7.507 (7.360-7.450); sO2 81.7 % (92.0-98.0)
[2019-07-10 11:12] LABS: ABSOLUTE NEUTROPHILS 8.1 thou/uL (1.4-8.2); BASOPHILS 0.2 % (0.0-2.0); HEMATOCRIT 27.8 % (37.0-47.0); HEMOGLOBIN 9.1 gm/dL (12.0-15.0); LYMPHOCYTES 7.5 % (24.0-44.0); MCH 30.9 pg (26.0-34.0); MCHC 32.7 g/dL (28.0-37.0); MCV 94.6 fL (80.0-100.0); MONOCYTES 8.7 % (1.0-8.0); PLATELET COUNT 391 thou/uL (150-400); POLYS 83.6 % (36.0-66.0); RBC 2.94 mil/uL (4.20-5.00); RDW 16.4 % (10.5-14.5); WBC 9.7 thou/uL (4.0-11.0)
[2019-07-10 11:33] LABS: ALBUMIN 2.1 g/dL (3.4-5.0); CALCIUM 8.8 mg/dL (8.5-10.1); CREATININE 1.2 mg/dL (0.6-1.0); POTASSIUM 3.4 mmol/L (3.5-5.1); TOTAL BILIRUBIN 0.4 mg/dL (<0.1-1.0); TOTAL PROTEIN 6.3 g/dL (6.4-8.2)
[2019-07-10 11:35] VITALS: BP 125/58
--- NOTE | 2019-07-10 12:20 | 2DMMODE ---
[facility] [address] [place] [address] 2 D/M-MODE ECHOCARDIOGRAM Name: FLETCHER PATRICIO Room #: 210-P ADM IN .R.#: [id number] Admission: 07/09/19 Attend Phys: Ally Chen Discharge: Date of : 34 Report #: [id number] THIS REPORT FOR: //name// APPROVED REPORT Study performed: 07/10/2019 11:31:24 EXAM: Comprehensive 2D, Doppler, and color-flow Echocardiogram Patient Location: Bedside Room #: 210 Status: routine BSA: 1.46 HR: 79 bpm BP: 147/63 mmHg Rhythm: NSR Other Information Study Quality: Good Indications Heart failure. Short of breath, cough, chest pain. Hx: CABG, CHF, Afib, COPD, DM. 2D Dimensions RVDd: 38.04 mm IVSd: 11.62 (7-11mm) LVOT Diam: 20.75 (18-24mm) LVDd: 32.36 mm PWd: 10.02 (7-11mm) Ascending Ao: 35.94 (22-36mm) LVDs: 20.09 (25-40mm) Aortic Root: 35.02 mm Volumes Left Atrial Volume (Systole) Single Plane 4CH: 24.78 mL Single Plane 2CH: 35.90 mL LA ESV Index: 22.00 mL/m2 Aortic Valve AoV Peak Angel.: 1.36 m/s AO Peak Gr.: 7.37 mmHg LVOT Max P.86 mmHg LVOT Max V: 0.98 m/s HERB Vmax: 2.45 cm2 Mitral Valve E/A Ratio: 0.8 MV Decel. Time: 274.30 ms [facility] [place] [address] [place] [address] 2 D/M-MODE ECHOCARDIOGRAM Name: FLETCHER PATRICIO Room #: [address] [place] [address] [place] [facility].#: [id number] Admission: 07/09/19 Attend Phys: Ally Chen Discharge: Date of : 34 Report #: [id number] MV E Max Angel.: 0.96 m/s MV A Angel.: 1.27 m/s MV PHT: 79.55 ms IVRT: 106.11 ms Pulmonary Valve PV Peak Angel.: 1.06 m/s PV Peak Gr.: 4.47 mmHg Tricuspid Valve TR Peak Angel.: 3.14 m/s RAP Estimate: 5.00 mmHg TR Peak Gr.: 40.00 mmHg PA Pressure: 45.00 mmHg Left Ventricle The left ventricle is normal size. There is normal LV segmental wall motion. Mild basal septal hypertrophy is present. Left ventricular systolic function is normal. LVEF is 65-70%. Mild diastolic dysfunction is present (impaired relaxation pattern). Right Ventricle The right ventricle is normal size. The right ventricular systolic function is normal. Atria The left atrium size is normal. The right atrium size is normal. Aortic Valve The aortic valve is normal in structure; midlly thickened and calcified. No aortic regurgitation is present. There is no aortic valvular stenosis. Mitral Valve Mitral valve leaflets are thickened. Moderate mitral annular calcification. Trace mitral regurgitation. No evidence of mitral valve stenosis. Tricuspid Valve The tricuspid valve is normal in structure. Mild to moderate tricuspid regurgitation. Estimated PAP is 45mmHg. Pulmonic Valve The pulmonary valve is normal in structure. Mild pulmonic regurgitation. Great Vessels [facility] [address] [place] [address] 2 D/M-MODE ECHOCARDIOGRAM Name: FLETCHER PATRICIO Room #: 210-P ADM IN M.R.#: [id number] Admission: 07/09/19 Attend Phys: Ally Chen Discharge: Date of : 34 Report #: [id number] The aortic root is normal in size. The ascending aorta is normal in size. IVC is normal in size and collapses >50% with inspiration. Pericardium There is no pericardial effusion. <Conclusion> The left ventricle is normal size. Mild basal septal hypertrophy is present. LVEF is 65-70%. Mild diastolic dysfunction is present (impaired relaxation pattern). The right ventricle is normal size. The left atrium size is normal. The aortic valve is normal in structure; midlly thickened and calcified. There is no aortic valvular stenosis. Mitral valve leaflets are thickened. Moderate mitral annular calcification. Mild to moderate tricuspid regurgitation. Estimated PAP is 45mmHg. The aortic root is normal in size. There is no pericardial effusion. <ELECTRONICALLY SIGNED> By: Mac Lemon MD, FACC 07/10/19 1220 1220 19 Mac Lemon MD, FACC /INF
--- NOTE | 2019-07-10 15:05 | NUR ---
Patient admits from [facility] rehab. Patient currently on 10 liters of oxygen. Sp with Rosalind in admission at [facility] patient will need to receive auth to return to [facility] rehab. patient admits with COPD exacerbation.
[2019-07-10 15:50] VITALS: BP 124/69
--- NOTE | 2019-07-10 18:07 | NUR ---
ASSUMMED PT CARE AT APPROXIMATELY 0700. PT A&O X4. ASSESSMENT CHARTED. FALL PRECAUTIONS IN PLACE. Q2 TURNS. PT DENIES CHEST PAIN. PT STATES SHE HAS CHRONIC BACK PAIN. PT RECIEVED ANALGESICS. PT STATED ANALGESICS RELIEVED PAIN. PT HAS O2 SAT HAS DECREASED AND GONE BACK TO STABLE THROUGHOUT THE DAY. RT NOTIFIED AND DR. MILLER NOTIFIED/AWARE. PT ON 10L OPIFLOW C CURRENTY STABLE O2 SAT. PT AND FAMILY EDUCATED ABOUT POC. PT AND FAMILY STATED UNDERSTANDING AND DENIED HAVING FURTHER QUESTIONS. PT AND FAMILY DENIES FURTHER CONCERNS AT THIS TIME. PT CHANGED TO [facility] SOFT DIET C HONEY THICK.
[2019-07-10 20:15] VITALS: BP 132/61
[2019-07-11] VITALS: BP 137/65
[2019-07-11 01:27] LABS: URINE BILIRUBIN NEGATIVE (Negative); URINE BLOOD NEGATIVE (Negative); URINE CLARITY CLEAR; URINE COLOR YELLOW; URINE GLUCOSE-RANDOM* NEGATIVE (Negative); URINE KETONES NEGATIVE (Negative); URINE LEUKOCYTES NEGATIVE (Negative); URINE NITRITE NEGATIVE (Negative); URINE PROTEIN (DIPSTICK) NEGATIVE (Negative); URINE UROBILINOGEN 0.2 E.U./dl (0.2-1.0)
[2019-07-11 04:55] VITALS: BP 134/64
--- NOTE | 2019-07-11 05:19 | NUR ---
PT WENT FOR CT OF CHEST THEN BACK TO ROOM WITH OPTIFLOW HF CANNULA SET AT FIO2 OF 55%, O2 SATS 91 TO 98%, NO C/O PAIN, L EJ PUT IN DURING CT,VSS, PT CALLS OUT FOR ASSIST WITH BEDPAN, TOLERATING HONEY THICKENED LIQUIDS, WILL CON'T TO MONITOR PER PPOC.
[2019-07-11 07:36] LABS: CALCIUM 8.4 mg/dL (8.5-10.1); CREATININE 1.1 mg/dL (0.6-1.0); POTASSIUM 3.4 mmol/L (3.5-5.1)
[2019-07-11 07:55] VITALS: BP 135/66
[2019-07-11 08:40] LABS: FOLIC ACID 13.5 ng/mL (8.6-58.9)
--- NOTE | 2019-07-11 10:37 | NUR ---
FAXED CLINICAL UPDATE TO [facility] RECEIVED CONFIRMATION AND LEFT MSG WITH SABAS IN ADM. DP TO FOLLOW.
--- NOTE | 2019-07-11 11:49 | NUR ---
FAXED CLINICAL REFERRAL TO [facility] RECEIVED CONFIRMATION AND LEFT MSG WITH THUAN IN ADM AT FACILITY. DP TO FOLLOW.
--- NOTE | 2019-07-11 12:02 | NUR ---
met with patient and dtr, cont plan for return to rehab at [facility] once stable. [facility] will need to submit for auth. once stable.
[2019-07-11 16:15] VITALS: BP 127/62
--- NOTE | 2019-07-11 18:57 | NUR ---
ASSUMMED PT CARE AT APPROXIMATELY 0700. PT A&O X4. ASSESSMENT CHARTED. FALL PRECAUTIONS IN PLACE. PT DENIES CHEST PAIN. PT DENIES SOB. PT STATED SHE DOES HAVE CHRONIC BACK PAIN. PT RECEIVED ANALGESICS. PT STATED ANALGESICS RELEIVED PAIN. EDUCATED PT AND PT'S FAMILY OF POC. PT AND PT'S FAMILY STATED UNDERSTANDING AND DENIED HAVING FURTHER QUESTIONS. PT STATED SHE HAD GI DISCOMFORT. NOTIFIED. PT RECIEVED PRN MED AND STATED THAT RELEIVED PAIN. PT COMFORTABLE IN BED. PT DENIES FURTHER CONCERNS.
[2019-07-11 19:58] VITALS: BP 106/48
--- NOTE | 2019-07-11 20:59 | HC ---
[facility] [place] [address] CONSULTATION Name: FLETCHER PATRICIO Room #: 211-P [facility] IN M.R.#: [id number] Admission: 07/09/19 Attend Phys: Ally Chen MD Discharge: Date of : 34 Report #: [id number] THIS REPORT FOR: //name// CC: [facility] DATE OF SERVICE: 07/10/2019 INFECTIOUS DISEASE CONSULTATION. REASON FOR CONSULTATION: Evaluate pneumonia in a history of recent hospitalization and remote history of C. difficile colitis. HISTORY OF PRESENT ILLNESS: The patient is an 84-year-old who fell last month and fractured her right humerus. This was treated nonoperatively. While in the hospital, she developed aspiration event and was concerned about esophageal issue. She underwent an EGD and esophageal dilatation. In addition, developed ischemic issues to her left lower extremity and required vascular surgery intervention. Following discharge, she developed more dyspnea at home. Intermittent fever and chills. Has had purulent sputum production. Because of her progressive decline, she was hospitalized yesterday for further evaluation. She is now hypoxic on 6 liters of oxygen per nasal cannula. She has had no nausea, vomiting or diarrhea. She did have a video swallow during her last hospitalization, which was normal. She has had no drainage from her incision, left groin. Still has some pain in her left foot. REVIEW OF SYSTEMS: A 10-point review of systems was negative other than what is described above. ALLERGIES: ADHESIVE TAPE, PENICILLIN, DEMEROL. MEDICATIONS: As noted on her MAR, having been given vancomycin and aztreonam. Other medications have included calcium, multivitamin, lactobacillus, Stiolto inhaler, amiodarone, Eliquis, Colace, iron, Lasix, Atrovent, latanoprost eyedrops, mirtazapine, montelukast, multivitamin, pantoprazole, pentoxifylline, 5 mg of prednisone, Colestid, Creon, Zocor. PAST MEDICAL HISTORY: Tremors, pneumonia, migraine headaches, tonsillectomy, coronary artery disease, coronary bypass grafting, diabetes, past smoker, chronic pancreatitis, cholecystectomy, hemorrhoidectomy, inguinal herniorrhaphy, bilateral femoral stents, COPD, bilateral cataract surgery, full mouth extraction, L1 compression fracture, atrial fibrillation, gastroesophageal reflux, anemia, esophageal stricture, C. difficile colitis. FAMILY HISTORY: Noncontributory. [address] [address] CONSULTATION Name: FLETCHER PATRICIO Room #: 211-P [facility] IN [facility]#: [id number] Admission: 07/09/19 Attend Phys: Ally Chen MD Discharge: Date of : 34 Report #: [id number] SOCIAL HISTORY: Past smoker, no significant alcohol intake. REVIEW OF SYSTEMS: A 10-point review of systems was negative other than what has been described above. PHYSICAL EXAMINATION: VITAL SIGNS: Afebrile and hemodynamically stable. GENERAL: She was weak, alert, cooperative and pleasant, on 6 liters of oxygen per nasal cannula. SKIN: Without decubitus or rash. No palpable adenopathy. HEENT: Eyes, without scleral icterus. Mouth without mucositis. NECK: Supple. LUNGS: Coarse breath sounds heard posteriorly in the bases. No consolidation. HEART: Regular, without murmur, gallop or rub. JVD was normal. ABDOMEN: Soft and nontender with no hepatosplenomegaly or mass appreciated. Left groin incision was well approximated with no erythema or drainage. EXTREMITIES: Pulses were diminished in both feet. Without clubbing, cyanosis or edema. Right arm was in a sling for her support of her humerus fracture. Sensation in her hand was normal. Capillary refill normal. NEUROLOGIC: Cranial nerves were intact. Strength in upper and lower extremities was otherwise normal and symmetric. PSYCHIATRIC: Appropriate mood with no evidence of depression or anxiety. LABORATORY STUDIES: Sodium 133, potassium 3.4, bicarbonate 33, creatinine 1.2. Liver function tests normal. Troponin negative. BNP 3843. Hemoglobin 9.1, WBC 9.7, platelets 391,000. Differential unremarkable. Procalcitonin 0.19. Urinalysis unremarkable. Blood, urine and sputum cultures are pending. Chest x-ray with stable bibasilar infiltrates with small effusions. IMPRESSION: 1. Acute respiratory compromise with chronic obstructive pulmonary disease exacerbation and healthcare-associated pneumonia. 2. Atrial fibrillation with a component of diastolic heart failure. 3. Hypertension. 4. Recent humerus fracture. 5. Recent lower extremity vascular surgery. RECOMMENDATIONS: We will continue with vancomycin and aztreonam for healthcare-associated pneumonia in the setting of PENICILLIN allergy; however, the patient does tolerate cephalosporins. Would be reasonable to switch to cephalosporins at this point in time. We will therefore continue with vancomycin and cefepime. We will screen for legionella and strep pneumo. Agree with corticosteroids in addition to cardiac therapy. We will also continue with [facility] [address] [place] [address] CONSULTATION Name: FLETCHER PATRICIO Room #: 211-P ADM IN M.R.#: [id number] Admission: 07/09/19 Attend Phys: Ally Chen MD Discharge: Date of : 34 Report #: [id number] Colestid while on antibiotic therapy. Monitor for evidence of C. difficile relapse. <ELECTRONICALLY SIGNED> By: Christian Gracia MD 07/11/19 [id number] Christian Gracia MD /nt
[2019-07-12 04:55] VITALS: BP 117/53
[2019-07-12 05:44] LABS: CALCIUM 8.5 mg/dL (8.5-10.1); CREATININE 1.4 mg/dL (0.6-1.0); POTASSIUM 3.6 mmol/L (3.5-5.1)
[2019-07-12 07:59] VITALS: BP 110/60
--- NOTE | 2019-07-12 08:13 | NUR ---
ASSESSMENTS CHARTED, MEDS CHARTED GIVEN. PATIENT VERY UNCOMFORTABLE IN BED DUE TO SLING/JUGULAR PIV/BROKEN ARM. COUGHING UP VERY THICK TENATIOUS SPUTUM. PATIENT ON LASIX THERAPY. PATIENT WAS FINALLY ABLE TO SLEEP WHEN WE TURNED HER TO HER RIGHT SIDE YET ELEVATED HER RIGHT ARM. FALL PRECAUTIONS IN PLACE. DENIED PAIN.
[2019-07-12 21:10] VITALS: BP 122/61
[2019-07-13 04:03] VITALS: BP 112/80
--- NOTE | 2019-07-13 04:35 | NUR ---
pt resting quietly in room , vss, tolerating diet doesn't like the thickened liquids uses mouth swabs to keep mouth moist, uses call light appropriatly for assistance to commode or bedpan, requires increased o2 with anxiety, will con't to monitor per ppoc.
[2019-07-13 08:10] VITALS: BP 124/66
--- NOTE | 2019-07-13 11:38 | NUR ---
ASSUMED CARE AT 0700, SHIFT ASSESSMENT DONE, MEDS GIVEN, VSS. REPORTED PAIN, PRN PAIN MEDS GIVEN. VSS. ON 8L NC. NSR ON TELE. WILL CONTINUE TO ASSESS AND ASSIST WITH ADLs NEEDED.
[2019-07-13 15:55] VITALS: BP 135/66
[2019-07-13 20:52] VITALS: BP 118/47
--- NOTE | 2019-07-14 04:40 | NUR ---
[facility] [id number]. FAMILY AT BEDSIDE. PT ALERT AND ORIENTED. REPORTS ARM AND BACK PAIN. 02 6-8L NASAL CANNULA. DENIES CHEST PAIN. VOIDING BY BEDPAN,. Q2 TURNS TOLERATED. DENIES NAUSEA OR VOMITING. HAD BOWEL MOVEMENT. OTHER ASSESSMENTS DOCUMENTED. WILL CONTINUE TO FOLLOW PLAN OF CARE.
[2019-07-14 05:07] VITALS: BP 119/51
[2019-07-14 07:11] VITALS: BP 117/61
[2019-07-14 07:32] LABS: ABSOLUTE NEUTROPHILS 13.3 thou/uL (1.4-8.2); BASOPHILS 0.3 % (0.0-2.0); EOSINOPHILS 0.7 % (0.0-3.0); HEMATOCRIT 25.7 % (37.0-47.0); HEMOGLOBIN 8.3 gm/dL (12.0-15.0); LYMPHOCYTES 8.6 % (24.0-44.0); MCH 30.5 pg (26.0-34.0); MCHC 32.5 g/dL (28.0-37.0); MCV 93.8 fL (80.0-100.0); MONOCYTES 6.2 % (1.0-8.0); PLATELET COUNT 404 thou/uL (150-400); POLYS 84.2 % (36.0-66.0); RBC 2.74 mil/uL (4.20-5.00); RDW 16.1 % (10.5-14.5); WBC 15.8 thou/uL (4.0-11.0)
[2019-07-14 09:24] LABS: ALBUMIN 1.9 g/dL (3.4-5.0); CALCIUM 8.6 mg/dL (8.5-10.1); CREATININE 1.2 mg/dL (0.6-1.0); TOTAL BILIRUBIN 0.4 mg/dL (<0.1-1.0); TOTAL PROTEIN 5.9 g/dL (6.4-8.2)
[2019-07-14 11:57] VITALS: BP 120/70
--- NOTE | 2019-07-14 15:31 | NUR ---
Milk Vendor visited with pt's dtr/dpoa Erika regarding pt's worsening condition, physician recommendation for DNR and hospice info visit. Emotional support provided and code status discussed. Pt's living will reviewed. Pt's sons are coming in later today and they will discuss as a family. Hospice benefits and philosphy of care discussed as well as insurance coverage. Dtr reports that the pt did a buy in plan at [facility] and has 50% discount on their ltc sanchez. [facility] alerted to possible referral. Brochure for [facility] provided. Dtr is familiar with their GIP unit at [facility]. Family to advise staff should they wish for a formal referral to [facility] and their oncall staff can be reached at [phone]. Milk Vendor encouraged pt's dtr to talk with the pt and her brothers regarding her wishes. They will advise should they decide to change her code status to DNR.
--- NOTE | 2019-07-14 16:47 | NUR ---
FAXED REFERRAL TO [facility] ATTN: ALLI RECEIVED CONFIRMATION FOR POSS. INFO VISIT WITH FAMILY.
--- NOTE | 2019-07-14 16:53 | NUR ---
FAXED CLINICAL UPDATE TO [facility] RECEIVED CONFIRMATION AND LEFT MSG WITH THUAN IN ADM. DP TO FOLLOW.
[2019-07-14 20:38] VITALS: BP 110/59
[2019-07-15 03:39] VITALS: BP 122/61
[2019-07-15 08:04] VITALS: BP 107/68
--- NOTE | 2019-07-15 08:19 | NUR ---
ALERT,FORGETFUL.PAIN FAIRLY CONTROLLED.REPOSITIONED Q2 HOURS.ON O2 8L NC.RECEIVES BREATHING TREATMENT FROM RT.MONITOR SHOWS SR.WILL MONITOR AND CONTINUE POC.
[2019-07-15 16:16] VITALS: BP 124/62
[2019-07-15 20:10] VITALS: BP 116/65
[2019-07-16 04:41] LABS: HEMATOCRIT 29.2 % (37.0-47.0); HEMOGLOBIN 9.3 gm/dL (12.0-15.0); MCH 30.2 pg (26.0-34.0); MCHC 31.9 g/dL (28.0-37.0); MCV 94.9 fL (80.0-100.0); RBC 3.08 mil/uL (4.20-5.00); RDW 16.5 % (10.5-14.5); WBC 18.7 thou/uL (4.0-11.0)
[2019-07-16 05:01] LABS: CALCIUM 8.8 mg/dL (8.5-10.1); CREATININE 1.5 mg/dL (0.6-1.0)
[2019-07-16 05:05] VITALS: BP 122/60
[2019-07-16 05:09] LABS: POTASSIUM 2.4 mmol/L (3.5-5.1)
[2019-07-16 07:09] VITALS: BP 127/53
--- NOTE | 2019-07-16 09:08 | NUR ---
PATIENT WAS AT 7L NC AT THE BEGINNING OF THE SHIFT.PAIN WELL CONTROLLED.THIS MORNING PT COMPLAIN OF DYSPNEA AND SPO2 IN THE 80'S.BREATHING TREATMENT GIVEN BY RT.WHIZZER HAND WAS INFORMED.POTASSIUM LEVEL 2.4 THIS AM.POTASSIUM WAS REPLACED.VANCO TROUGH WAS 34.DR VELARDE WAS HERE AND D/C VANCOMYCIN AND REPLACED IT WITH LINEZOLID.O2 WAS UP TO 10 L NC.MONITOR SHOWS SR.POC CONTINUED.
[2019-07-16 15:54] VITALS: BP 110/59
--- NOTE | 2019-07-16 16:46 | NUR ---
ALERT. ORIENTED. VERY DRAMATIC. C/O SOB INTERMITTENTLY, CONTINUOUS O2 SATS IN THE 90'S. C/O NECK PAIN AT EXTERNAL JUGULAR SITE, MEDICATED, LIDOCAINE PATCH APPLIED, AND SLEPT. POTASSIUM DRIP SLOWED TO PREVENT NECK PAIN. ADULT SONS AT BEDSIDE. INCONTINENT OF LARGE UNFORMED STOOL, LINENS AND GOWN CHANGED. SR PER TELE. FALL PRECAUTIONS IN PLACE. FREQUENT CHECKS; WILL CONTINUE TO MONITOR.
[2019-07-16 20:15] VITALS: BP 113/63
--- NOTE | 2019-07-17 04:30 | NUR ---
1900, PT ALERT AND ORIENTED. FAMILY AT BEDSIDE. C/O PAIN ( GENERAL PAIN). FREQUENT REPOSITIONING . OXY PRN FOR PAIN. NECTOR THICK LUIDS . VOIDS BY BEDSIDE COMMODE. WILL CONTINUE WITH PLAN OF CARE.
[2019-07-17 04:45] VITALS: BP 124/65
[2019-07-17 06:20] LABS: HEMATOCRIT 27.2 % (37.0-47.0); HEMOGLOBIN 8.6 gm/dL (12.0-15.0); MCH 29.9 pg (26.0-34.0); MCHC 31.4 g/dL (28.0-37.0); MCV 95.2 fL (80.0-100.0); RBC 2.86 mil/uL (4.20-5.00); RDW 16.7 % (10.5-14.5); WBC 17.3 thou/uL (4.0-11.0)
[2019-07-17 06:30] LABS: CALCIUM 8.6 mg/dL (8.5-10.1); CREATININE 1.2 mg/dL (0.6-1.0); MAGNESIUM 1.9 mg/dL (1.8-2.4)
[2019-07-17 06:31] LABS: POTASSIUM 4.1 mmol/L (3.5-5.1)
[2019-07-17 08:39] VITALS: BP 128/54
[2019-07-17 12:00] VITALS: BP 99/54
--- NOTE | 2019-07-17 13:58 | NUR ---
casemgt with discussion of hospice services on wednesday. Sp with dtr who reports today patient worked with therapy and appears a bit better with strength. Dtr reports at this time they want to cont to pursue rehab. Dtr aware of hospice benefit. Offered to discuss further with patient, dtr agrees beneficial but not today. At this time plan skilled care.
--- NOTE | 2019-07-17 15:06 | NUR ---
FAXED REFERRAL TO [facility] SPOKE WITH THUAN IN ADM SHE RECEIVED REFERRAL AND WILL SUBMIT FOR AUTH. DP TO FOLLOW.
[2019-07-17 16:00] VITALS: BP 113/53
--- NOTE | 2019-07-17 19:16 | NUR ---
ASSUMED CARE OF PT AT SHIFT CHANGE. ASSESSMENTS CHARTED. MEDS GIVEN PER MAR. VSS. A&OX4. C/O PAIN TREATED WITH PO MEDS. X2 ASSIST. USES THE BSC AND BEDPAN AT NIGHT. NO APPETITE, DRINKING PARTIAL SUPPLEMENTS. FAMILY AT BEDSIDE. WORKED WITH PT/OT. WILL CONTINUE TO MONITOR AND FOLLOW POC.
[2019-07-17 20:31] VITALS: BP 105/69
--- NOTE | 2019-07-18 04:46 | NUR ---
1900, PT ALERT AND ORIENTED. FAMIL AT BEDSIDE. REPORTS PAIN, /10. PT GETTING PRN OXY FOR PAIN. MELATONIN NEEDED GIVEN. PT SLEPT WITH MINIMUM INTERRUPTION. DENIES CHEST PAIN, NAUSEA, VOMITING AND DIARRHEA. NIGHTMARE NOTED OVER MIGHT. WILL CONTINUE WITH PLAN OF CARE.
[2019-07-18 04:49] LABS: HEMATOCRIT 26.1 % (37.0-47.0); HEMOGLOBIN 8.3 gm/dL (12.0-15.0); MCH 30.4 pg (26.0-34.0); MCHC 31.9 g/dL (28.0-37.0); MCV 95.5 fL (80.0-100.0); RBC 2.74 mil/uL (4.20-5.00); RDW 16.9 % (10.5-14.5); WBC 13.3 thou/uL (4.0-11.0)
[2019-07-18 04:55] LABS: CALCIUM 9.1 mg/dL (8.5-10.1); CREATININE 1.3 mg/dL (0.6-1.0); POTASSIUM 3.7 mmol/L (3.5-5.1)
[2019-07-18 09:15] VITALS: BP 107/44
[2019-07-18 12:02] VITALS: BP 103/46
[2019-07-18 16:00] VITALS: BP 122/61
--- NOTE | 2019-07-18 16:52 | NUR ---
Patient refused to work with therapy. she reports "I just want to ." Family unsure if she would improve as she was yesterday. Discussed hospice services and pallative care. Liason with [facility] hospice also met with family and patient and discussed services. Family reports [facility] does not have a ltc bed at facility but patient could come to hospice wing and family reports transition to ltc. They care concerned if patient should have pna she may want to return to hospital. Patient is DNR and outside DNR on chart.
--- NOTE | 2019-07-18 16:56 | NUR ---
ASSESSMENTS AND INTERVENTIONS DOCCUMENTED. PATIENT SAYING "PLEASE LET ME " FAMILY AT BEDSIDE. FAMILY REQUESTED CODE STATUS TO BE CHANGED FROM FULL CODE TO DNR. ORDERS CHANGED. PATIENTS FAMILY EDUCATED ON PAIN MANAGEMENT. FOOD OFFERED TO THE PATIENT. PATIENT NOT HAVING AN APPETITE AT THIS TIME.
[2019-07-18 20:42] VITALS: BP 112/64
[2019-07-19 04:18] VITALS: BP 116/71
[2019-07-19 05:04] LABS: HEMATOCRIT 24.1 % (37.0-47.0); HEMOGLOBIN 7.9 gm/dL (12.0-15.0); MCH 30.7 pg (26.0-34.0); MCHC 32.6 g/dL (28.0-37.0); MCV 94.2 fL (80.0-100.0); RBC 2.56 mil/uL (4.20-5.00); RDW 17.1 % (10.5-14.5); WBC 16.9 thou/uL (4.0-11.0)
[2019-07-19 05:19] LABS: CREATININE 1.4 mg/dL (0.6-1.0); MAGNESIUM 1.8 mg/dL (1.8-2.4); POTASSIUM 3.2 mmol/L (3.5-5.1)
--- NOTE | 2019-07-19 05:43 | NUR ---
PATIENT CARES WERE ASSUMED AT SHIFT CHANGE. PATIENT WAS ASSESSSED MEDS WERE ASSESSED. PATIENT DID SLEEP MOST OF THIS SHIFT. HOURLY ROUNDING WAD GOME. PATIETN IS IN GOOD CONDITION. THE BED IS IN A LOW AND LOCKED POSITION.
[2019-07-19 07:21] VITALS: BP 111/65
[2019-07-19 11:24] VITALS: BP 120/69
--- NOTE | 2019-07-19 12:13 | NUR ---
NOTIFIED JAMES IN ADM AT [facility] THAT PT TO WORK WITH PHYSICAL THERAPY TODAY AND WILL KNOW LATER WHAT THE DC PLAN WILL BE. DP TO FOLLOW.
--- NOTE | 2019-07-19 15:39 | NUR ---
PT ALERT AND ORIENTED. COOPERATIVE WITH CARES THIS AM. REPORT HAVING BILATERAL LEG PAIN WITH MOVEMENT. APPETITE POOR. HAD VIDEO SWALLOW STUDY. FAMILY AT THE [facility]. UPDATED ON PT'S PROGRESS. WILL CONTINUE TO MONITOR.
--- NOTE | 2019-07-19 16:07 | NUR ---
Chart reviewed and case discussed with the care team. [facility] and [facility] on hold pending plan of care. Pt refused therapy again today and likely would not be a candidate for skilled rehab. CM recommendation is for [facility] hospice unit/intermodal dispatcher care at [facility]. Family is hoping the pt will rally and be able to rehab.
[2019-07-19 17:12] VITALS: BP 107/62
[2019-07-19 20:21] VITALS: BP 111/65
[2019-07-20 03:53] VITALS: BP 122/61
[2019-07-20 05:24] LABS: HEMATOCRIT 25.5 % (37.0-47.0); HEMOGLOBIN 8.3 gm/dL (12.0-15.0); MCH 30.4 pg (26.0-34.0); MCHC 32.4 g/dL (28.0-37.0); MCV 93.7 fL (80.0-100.0); RBC 2.72 mil/uL (4.20-5.00); RDW 16.6 % (10.5-14.5); WBC 10.1 thou/uL (4.0-11.0)
--- NOTE | 2019-07-20 05:40 | NUR ---
PATIENTS CARES WERE ASSUMED AT SHIFT CHANGE. PATIENT WAS ASSESSED AND MEDS WERE PASSED. PATIENT CONTINUES TO DISPLAY A DEPRESSIVE STATE AND CONTINUES TO VERBALIZE SHE WANTS TO . THE DAY NURSE SAID PATIENT WAS ALOT BUBBLER UNTIL ABOUT TWO THREE OCLOCK. HOURLY ROUNDING WAS DONE. THE BED IS IN A LOW AND LOCKED POSITION.
[2019-07-20 05:55] LABS: CALCIUM 8.8 mg/dL (8.5-10.1); CREATININE 1.4 mg/dL (0.6-1.0); MAGNESIUM 1.9 mg/dL (1.8-2.4)
[2019-07-20 06:11] LABS: POTASSIUM 2.8 mmol/L (3.5-5.1)
[2019-07-20 07:32] VITALS: BP 93/51
[2019-07-20 11:36] VITALS: BP 133/87
[2019-07-20] MEDS ORDERED: OXYCODONE HCL10 MG PO (13:16)
[2019-07-20] MEDS ORDERED: ATIVAN1 M1 PO (13:16)
[2019-07-20 15:17] VITALS: BP 100/61
--- NOTE | 2019-07-20 16:41 | NUR ---
PT DISCHARGING TODAY TO [facility] FAXED DC ORDERS/SUMMARY TO FACILITY SPOKE WITH JAMES IN ADM SHE RECEIVED DC ORDERS AND AMBULANCE TRANSPORT ARRANGED FOR 1600 TODAY. FAMILY NOTIFIED BY SW (ENZO) AND UNIT NOTIFIED AND CHART COPY PER US. RN TO CALL REPORT.
--- NOTE | 2019-07-20 17:38 | NUR ---
Pt and family opted for dc to the hospice unit at [facility] today. Arrangements coordinated through [facility]. Dc neighborhood planner faxed her ltc orders and arranged ambulance transport through [facility] at 4pm. Dtr and pt updated throughout the day. DNR form and 124c sent with the chart copy. Nursing called report. Case closed.
== END 2019-07-20 16:17 | disposition hospice, inpatient (51) | DRG 177 ==
LOC: ER 14:25 → 2N 16:56 → EROBS 16:56 → 2N 18:38
PROVIDERS: Emergency Medicine; Hospitalist; Internal Medicine; Nurse Practitioner; Pediatrics; ADMIT Internal Medicine
DX: J15.6 Pneumonia due to other Gram-negative bacteria (principal); I50.31 Acute diastolic (congestive) heart failure; J96.01 Acute respiratory failure with hypoxia; E43 Unspecified severe protein-calorie malnutrition; J44.1 Chronic obstructive pulmonary disease with (acute) exacerbation; N17.9 Acute kidney failure, unspecified; E87.1 Hypo-osmolality and hyponatremia; J91.8 Pleural effusion in other conditions classified elsewhere; Z68.1 Body mass index [BMI] 19.9 or less, adult; I25.10 Atherosclerotic heart disease of native coronary artery without angina pectoris; I48.91 Unspecified atrial fibrillation; K21.9 Gastro-esophageal reflux disease without esophagitis; G43.909 Migraine, unspecified, not intractable, without status migrainosus; Z60.2 Problems related to living alone; D64.9 Anemia, unspecified; E11.51 Type 2 diabetes mellitus with diabetic peripheral angiopathy without gangrene; R47.02 Dysphasia; K22.2 Esophageal obstruction; E78.5 Hyperlipidemia, unspecified; E11.65 Type 2 diabetes mellitus with hyperglycemia; E87.8 Other disorders of electrolyte and fluid balance, not elsewhere classified; R59.1 Generalized enlarged lymph nodes; R13.10 Dysphagia, unspecified; D72.829 Elevated white blood cell count, unspecified; E53.8 Deficiency of other specified B group vitamins; J69.0 Pneumonitis due to inhalation of food and vomit; E87.6 Hypokalemia; F32.9 Major depressive disorder, single episode, unspecified; Z51.5 Encounter for palliative care; Z66 Do not resuscitate; Z95.1 Presence of aortocoronary bypass graft; Z82.49 Family history of ischemic heart disease and other diseases of the circulatory system; Z83.3 Family history of diabetes mellitus; Z47.89 Encounter for other orthopedic aftercare; Z90.49 Acquired absence of other specified parts of digestive tract; Z95.820 Peripheral vascular angioplasty status with implants and grafts; Z98.42 Cataract extraction status, left eye; Z98.41 Cataract extraction status, right eye; Z88.0 Allergy status to penicillin; Z88.8 Allergy status to other drugs, medicaments and biological substances; Z87.891 Personal history of nicotine dependence; Z23 Encounter for immunization
CPT/HCPCS: 10081